=== PATIENT | male | born 1950 | race Caucasian/White ===

== ENCOUNTER 2016-12-07 20:10 | Inpatient (IN) | payer MEDICARE ==
[2016-12-07] MEDS ORDERED: NS 0.9% 1000 ML* 1,000 ML IV ONE (20:12)
[2016-12-07 20:50] LABS: Hematocrit 47 % (42-52); Hemoglobin 14.9 g/dl (14.0-18.0); Mean Corpuscular HGB Conc 32 g/dl (31-36); Mean Corpuscular Hemoglobin 28 pg (27-31); Mean Corpuscular Volume 89 fL (80-94); Mean Platelet Volume 8 um3 (7.4-10.4); Red Blood Count 5.28 10^6/ul (4.0-5.4); Red Cell Distribution Width 17 % (10.5-15); White Blood Count 22.5 10^3/ul (3.5-10.8)
--- NOTE | 2016-12-07 20:50 | HP ---
H&P (Free Text) History and Physical: PCP: none Date/Time of Evaluation: 12/07/20162034 CC: SOB HPI: Mr Doan is a 66YO male who is a very poor, tangential historian present via EMS with severe respiratory distress. He lives in an apartment in his daughter's home. She relates that he has always been a "hermit" refusing to go to a doctor at her encouragement. She states he rarely leaves his apartment. Today she was at work when she received an incoherent text from him which is unusual as he never texts. She went home to find him on the floor unable to get up and called EMS who related he was reasonably stable upon their arrival, but developed progressive SOB during transport. Mr Doan is AA&O to PPTS, but is very difficult to get information from as his answers vary minute to minute. At one point he relates his breathing was worse all week while another moment states he was at his baseline this AM. In one breath he will admit to having had some chest pain and the next deny chest pain. At another time he states he' s lost ~100# in the past 6 months, then will state he has never weighed more than 135#. His daughter states that he was convinced he had a swallowing problem 20-30 years ago, went to a doctor who told him his swallowing was fine, and so he never went to a doctor again. She states he has never been a 'big eater'. ED evaluation revealed a L pneumothorax for which a needle catheter was placed and Teja Rodrigues MD surgery is present placing a chest tube. 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 Father was estranged. ROS: as above, otherwise reviewed and all were negative Constitutional: NAD currently, normally developed, severely cachexic white male vitals: Vital Signs Temp Pulse 106 12/07/16 21:00 Resp 26 12/07/16 21:00 BP 115/64 12/07/16 21:00 Pulse Ox 87 12/07/16 21:00 Intake & Output 12/06/16 12/07/16 12/07/16 23:59 11:59 23:59 Intake Total 1000 Balance 1000 Intake: IV Fluids 1000 HEENM: atraumatic; sclera/conjunctiva: non-icteric/dull; blephara: sunken; hearing: clinically intact; oropharynx: clear, mucosa tacky Neck: soft tissue: no nuchal rigidity; thyroid: normal Pulmonary: diminished L, poor to fair aeration, no accessory muscle use, pleural catheter L chest CV: TR/TR, normal S1S2, no carotid bruit, no jugular venous distention, 2+ B DP/ PT, no edema Abdominal: soft, non-distended, non-tender, no rebound/guarding/rigidity, normoactive bowel sounds, no hepatosplenomegaly or masses, no costovertebral angle tenderness Musculoskeletal: general: no overt deformities, advanced muscle wasting; gait: too ill to ambulate currently Integumental: normal appearance, ichthyosis B forefeet, no open wounds to exposed skin Psychiatric orientation: AA&O to PPTS & current events affect: calm mood: cooperative eye contact: fair content: unreliable; he appears to understand the questions but answers vary moment to moment regarding his health; however questions regarding orientation, goals of treatment, & care he is willing to accept are consistent; his daughter confirms that he would not want heroic measures such as CPR, cardioversion, or intubation responses: timely insight: fair to poor Testing: Lab Results 12/07/16 12/07/16 12/07/16 Range/Units 20:20 20:20 20:20 WBC 22.5 H (3.5-10.8) 10^3/ul RBC 5.28 (4.0-5.4) 10^6/ul Hgb 14.9 (14.0-18.0) g/dl Hct 47 (42-52) % MCV 89 (80-94) fL MCH 28 (27-31) pg MCHC 32 (31-36) g/dl RDW 17 H (10.5-15) % Plt Count 277 (150-450) 10^3/ul MPV 8 (7.4-10.4) um3 Neut % (Auto) 90.9 H (38-83) % Lymph % (Auto) 2.8 L (25-47) % [place] % (Auto) 6.0 (1-9) % Eos % (Auto) 0 (0-6) % Baso % (Auto) 0.3 (0-2) % Absolute Neuts (auto) 20.5 H (1.5-7.7) 10^3/ul Absolute Lymphs (auto) 0.6 L (1.0-4.8) 10^3/ul Absolute Monos (auto) 1.3 H (0-0.8) 10^3/ul Absolute Eos (auto) 0 (0-0.6) 10^3/ul Absolute Basos (auto) 0.1 (0-0.2) 10^3/ul Absolute Nucleated RBC 0.01 10^3/ul Nucleated RBC % 0 INR (Anticoag Therapy) 1.26 H (0.89-1.11) APTT 29.2 (26.0-36.3) seconds Sodium 144 (133-145) mmol/L Potassium 4.5 (3.5-5.0) mmol/L Chloride 101 (101-111) mmol/L Carbon Dioxide 28 (22-32) mmol/L Anion Gap 15 H (2-11) mmol/L BUN 88 H (6-24) mg/dL Creatinine 4.06 H (0.67-1.17) mg/dL Est GFR ( Amer) 19.0 (>60) Est GFR (Non-Af Amer) 14.8 (>60) BUN/Creatinine Ratio 21.7 H (8-20) Glucose 147 H (70-100) mg/dL Lactic Acid (0.5-2.0) mmol/L Calcium 9.6 (8.6-10.3) mg/dL Total Bilirubin 0.70 (0.2-1.0) mg/dL AST 44 H (13-39) U/L ALT 34 (7-52) U/L Alkaline Phosphatase 63 (34-104) U/L Total Creatine Kinase Pending CK-MB (CK-2) Pending Troponin I 0.06 H* (<0.04) ng/mL Total Protein 7.1 (6.4-8.9) g/dL Albumin 3.2 (3.2-5.2) g/dL Globulin 3.9 (2-4) g/dL Albumin/Globulin Ratio 0.8 L (1-3) Prealbumin Pending 12/07/16 Range/Units 20:20 WBC (3.5-10.8) 10^3/ul RBC (4.0-5.4) 10^6/ul Hgb (14.0-18.0) g/dl Hct (42-52) % MCV (80-94) fL MCH (27-31) pg MCHC (31-36) g/dl RDW (10.5-15) % Plt Count (150-450) 10^3/ul MPV (7.4-10.4) um3 Neut % (Auto) (38-83) % Lymph % (Auto) (25-47) % [place] % (Auto) (1-9) % Eos % (Auto) (0-6) % Baso % (Auto) (0-2) % Absolute Neuts (auto) (1.5-7.7) 10^3/ul Absolute Lymphs (auto) (1.0-4.8) 10^3/ul Absolute Monos (auto) (0-0.8) 10^3/ul Absolute Eos (auto) (0-0.6) 10^3/ul Absolute Basos (auto) (0-0.2) 10^3/ul Absolute Nucleated RBC 10^3/ul Nucleated RBC % INR (Anticoag Therapy) (0.89-1.11) APTT (26.0-36.3) seconds Sodium (133-145) mmol/L Potassium (3.5-5.0) mmol/L Chloride (101-111) mmol/L Carbon Dioxide (22-32) mmol/L Anion Gap (2-11) mmol/L BUN (6-24) mg/dL Creatinine (0.67-1.17) mg/dL Est GFR ( Amer) (>60) Est GFR (Non-Af Amer) (>60) BUN/Creatinine Ratio (8-20) Glucose (70-100) mg/dL Lactic Acid 3.1 H* (0.5-2.0) mmol/L Calcium (8.6-10.3) mg/dL Total Bilirubin (0.2-1.0) mg/dL AST (13-39) U/L ALT (7-52) U/L Alkaline Phosphatase (34-104) U/L Total Creatine Kinase CK-MB (CK-2) Troponin I (<0.04) ng/mL Total Protein (6.4-8.9) g/dL Albumin (3.2-5.2) g/dL Globulin (2-4) g/dL Albumin/Globulin Ratio (1-3) Prealbumin ECG, personally reviewed: sinus arrhythmia rate 130, no ischemia CXR, personally reviewed: IMPRESSION: Small bore pleural catheter in place at the LEFT apex. Mild interval decrease in volume of the large LEFT pneumothorax with the visceral pleural now displaced only 5.4 cm from the parietal pleura compared with 6.8 cm previously. Negative for mediastinal shift. Advanced stigmata of chronic obstructive pulmonary disease and interstitial fibrosis. CT C-spine WO: IMPRESSION: No acute fracture or listhesis of cervical spine. Mild cervical spondyloarthropathy. Osteopenia. CT chest/abd/pel WO, personally reviewed: Small left pneumothorax. Left sided chest tube tip in region of the left thoracic apex. No mediastinal shift. Moderate to severe upper lobe predominant emphysema. Nonspecific bilateral lower lobe consolidations. Small left pleural effusion. Coronary artery and aortic atherosclerotic changes. No acute abnormality [of the abdomen or pelvis] . Nonspecific small 15mm lucent focus in the posterior medial left iliac wing. Impression: 66M severely cachectic, very poor historian presenting via EMS found on floor by daughter identified as having a large spontaneous L pneumothorax in ED DIAGNOSIS & PLAN Primary spontaneous L pneumothorax : s/p needle cath to L chest via ED MD : Teja Rodrigues MD surgery present to place chest tube w/ Heimlich valve; will follow & manage : supportive care : pain control sepsis (leukocytosis, tachycardia, positive procalcitonin/lactate), suspect RLL pneumonia : piperacillin/tazobactam empirically : blood, sputum, & urine CXs : trend lactic acid severe protein malnutrition, weight loss, & cachexia : nutrition consult : check pre-albumin : ST for swallowing evaluation : PT/OT evaluations : check CT chest/abd/pel WO to eval for occult malignancy renal failure : no comparison BUN/cre values; suspect acute vs acute on chronic : IVFs & trend : consider nephrology consult, pending response elevated troponin : suspect demand ischemia 2nd above : telemetry : trend COPD, not in exacerbation : albuterol nebs PRN : mometasone/formoterol : tiotropium : incentive spirometry : smoking cessation recommended, low motivation Admission Rational: inpatient for critically ill patient requiring ICU, poor prognosis, inappropriate for outpatient setting DVTp: SCDs & heparin SQ Code Status: DNR/I requested by patient, confirmed by daughter; MOLST filled out HCP: daughter Kimmie Total critical care time: 120min, >50% spent in direct [id number] evaluation of patient, speaking w/ family, explaining TX options, goals of therapy, prognosis, & status
[2016-12-07 20:51] LABS: Add Diff/Slide Review? Slide Review Added; Comments Flag Yes
[2016-12-07 20:56] LABS: Troponin I 0.06 ng/mL (<0.04)
[2016-12-07 21:03] LABS: Albumin 3.2 g/dL (3.2-5.2); BUN/Creatinine Ratio 21.7 (8-20); Calcium 9.6 mg/dL (8.6-10.3); EGFR Non-African American 14.8 (>60); Globulin 3.9 g/dL (2-4); Potassium 4.5 mmol/L (3.5-5.0); Total Bilirubin 0.7 mg/dL (0.2-1.0); Total Protein 7.1 g/dL (6.4-8.9)
--- NOTE | 2016-12-07 21:10 | RAD ---
Indication: Sepsis. Question pneumonia. Comparison: No relevant prior exams available on the [facility] PACS for comparison. Technique: Upright AP Report: Large LEFT pneumothorax with the lateral visceral pleural displaced up to 6.8 cm medial from the parietal pleura. Negative for mediastinal shift. Generalized elevated lung volumes and both diffuse severe prominence of the interstitial markings and patchy rarefaction of the mid to upper lung zone interstitial markings. No focal pulmonary lesion evident. Negative for cardiomegaly. Unremarkable central pulmonary vasculature and mediastinal contours. IMPRESSION: Large LEFT pneumothorax without mediastinal shift. Advanced stigmata of chronic obstructive pulmonary disease and interstitial fibrosis.
--- NOTE | 2016-12-07 21:20 | RAD ---
Indication: Large LEFT pneumothorax post needle decompression. Comparison: 1911 hours exam of the same date. Technique: Upright AP 2049 Report: Small bore pleural catheter in place at the LEFT apex. Mild interval decrease in volume of the large LEFT pneumothorax with the visceral pleural now displaced only 5.4 cm from the parietal pleura compared with 6.8 cm previously. Negative for mediastinal shift. Generalized elevated lung volumes and both diffuse severe prominence of the interstitial markings and patchy rarefaction of the mid to upper lung zone interstitial markings. No focal pulmonary lesion evident. Negative for cardiomegaly. Unremarkable central pulmonary vasculature and mediastinal contours. IMPRESSION: Small bore pleural catheter in place at the LEFT apex. Mild interval decrease in volume of the large LEFT pneumothorax with the visceral pleural now displaced only 5.4 cm from the parietal pleura compared with 6.8 cm previously. Negative for mediastinal shift. Advanced stigmata of chronic obstructive pulmonary disease and interstitial fibrosis.
[2016-12-07] MEDS ORDERED: Ondansetron INJ* 2 MG/ML VIAL IV PRN (22:20)
[2016-12-07] MEDS ORDERED: Albuterol 2.5 MG/3 ML NEB.SOL* (0.083%) INH PRN (22:20)
[2016-12-07] MEDS ORDERED: CMCS: Melatonin (NF) 3 MG TAB PO PRN (22:20)
[2016-12-07] MEDS ORDERED: Nicotine Inhaler* 10 MG AMP INH PRN (22:20)
[2016-12-07] MEDS: NS 0.9% 1000 ML* 1,000 ML IV SCH ×2 (23:11→23:12)
[2016-12-08] MEDS: Albuterol 2.5 MG/3 ML NEB.SOL* (0.083%) INH SCH ×4 (01:07→19:34)
[2016-12-08] MEDS: NS 0.9% 1000 ML* 1,000 ML IV SCH ×3 (03:44→19:05)
[2016-12-08 04:03] LABS: Urine Bacteria 1+ (Absent); Urine Bilirubin Negative (Negative); Urine Glucose Negative (Negative); Urine Nitrite Negative (Negative)
[2016-12-08] MEDS: Omeprazole CAP* 20 MG PO SCH ×2 (06:00→09:37)
[2016-12-08 06:21] LABS: Hematocrit 38 % (42-52); Hemoglobin 11.9 g/dl (14.0-18.0); Mean Corpuscular HGB Conc 32 g/dl (31-36); Mean Corpuscular Hemoglobin 28 pg (27-31); Mean Corpuscular Volume 89 fL (80-94); Mean Platelet Volume 8 um3 (7.4-10.4); Red Cell Distribution Width 17 % (10.5-15); White Blood Count 16.1 10^3/ul (3.5-10.8)
[2016-12-08 06:26] LABS: Calcium 8.1 mg/dL (8.6-10.3); EGFR African American 26.6 (>60); EGFR Non-African American 20.7 (>60); Potassium 3.8 mmol/L (3.5-5.0)
[2016-12-08 06:33] LABS: Troponin I 0.05 ng/mL (<0.04)
[2016-12-08] MEDS: Heparin VIAL(*) 5000 UNITS/ML VIAL (FIVE THOUSAND) SUBCUT SCH ×3 (06:43→21:49)
[2016-12-08] MEDS: Tiotropium CAP.INH* CAP.INH/18 MCG INH SCH (08:30)
[2016-12-08] MEDS: Mometasone/Formoter 200/5 MDI INH SCH ×2 (08:31→19:37)
[2016-12-08] MEDS ORDERED: Mouth Piece, Nicotine* 1 EACH CARTRIDGE INH ONE (09:00)
[2016-12-08] MEDS: Docusate CAP* 100 MG PO SCH ×2 (09:37→21:38)
[2016-12-08] MEDS: Azithromycin IV(*) 500 MG in NS 0.9% 250 ML* 250 ML IVPB SCH (09:37)
[2016-12-08] MEDS: Aspirin EC Low Dose* 81 MG TAB.EC PO SCH (09:37)
[2016-12-08] MEDS: Spiriva Inhaler DEVICE* 1 EACH DEVICE INH SCH (09:48)
--- NOTE | 2016-12-08 10:01 | RAD ---
INDICATION: Severe cachexia. Suspect occult malignancy. Presented to the ED with LEFT pneumothorax. COMPARISON: December 07, 2016 chest radiograph. TECHNIQUE: Multidetector CT images were obtained from the lung apices to the ischial tuberosities without contrast. Assessment of the viscera limited without contrast. CHEST REPORT: Persistent approximate 30% LEFT pneumothorax. Heimlich valve type LEFT apical chest tube in place. Small dependent LEFT pleural effusion. Severe emphysema and moderate interstitial fibrosis. Alveolar consolidation at the bilateral lower lobes. On the LEFT this may in part represent atelectasis given volume loss from the pneumothorax. Reference image 38; 0.7 cm subpleural smooth margin noncalcified pulmonary nodule at the anterior segment of the RIGHT upper lobe. Negative for mediastinal shift. Negative for cardiomegaly or pericardial effusion. No thoracic lymphadenopathy with absence of IV contrast and cachectic state limiting assessment. Normal diameter thoracic aorta with calcific plaque. No thoracic fractures or suspicious focal osseous lesions evident. CHEST IMPRESSION: 1. Persistent approximate 30% LEFT pneumothorax. Heimlich valve type LEFT apical chest tube in place. Small dependent LEFT pleural effusion. Severe emphysema and moderate interstitial fibrosis. 2. Severe emphysema and moderate interstitial fibrosis. Alveolar consolidation at the bilateral lower lobes. On the LEFT this may in part represent atelectasis given volume loss from the pneumothorax. 3. 0.7 cm smooth margined subpleural pulmonary nodule anterior segment RIGHT upper lobe. Consider reassessment with noncontrast CT in 3 months time. ABDOMEN PELVIS REPORT: Absence of IV and oral contrast and cachectic state limits assessment. No gross abnormality of the liver, gallbladder, pancreas, spleen. Assessment of the alimentary tract is particularly limited due to factors described. Significant rectal distention with large volume of formed stool. No ascites, free air, or hernias evident. Negative for adrenal lesions. Unremarkable kidneys. No conspicuous urolithiasis or hydronephrosis. No gross abnormality of the partially distended urinary bladder. Coarse calcifications at the prostate. Grossly symmetric seminal vesicles. No lymphadenopathy evident with assessment limited due to factors noted above. Calcific plaque without aneurysm of the abdominal aorta or iliac arteries. Partially decompressed IVC indicating low volume state. 1.5 cm lucent lesion at the LEFT iliac wing medially is low suspicion given narrow zone of transition with partial thin sclerotic margin . This likely represents a degenerative cyst related to sacroiliac joint arthropathy. Negative for suspicious osseous lesions. Polyarticular degenerative arthropathy. ABDOMEN PELVIS IMPRESSION: Absence of IV and oral contrast and cachectic state limits assessment. Cold malignancy or acute abdominal pelvic pathologic process evident.
--- NOTE | 2016-12-08 10:06 | RAD ---
Indication: Post LEFT apical chest tube placement for pneumothorax. Comparison: Chest radiographs and CT of the same date. Technique: Upright AP 2235 hours Report: LEFT apical chest tube in place. Gross near complete resolution of previous large LEFT pneumothorax. Negative for mediastinal shift. Elevated lung volumes and both diffuse mild prominence of the interstitial markings and patchy rarefaction of the mid to upper lung zone interstitial markings. Patchy alveolar consolidation throughout the LEFT lung and at the RIGHT mid to lower lung zone corresponding with alveolar consolidation and mucous plugging on CT consistent with inflammatory infiltrates. The heart, pulmonary vasculature, and mediastinal contours are unremarkable. IMPRESSION: Near complete radiographic resolution of previous large LEFT pneumothorax. Bilateral inflammatory infiltrate superimposed on advanced chronic obstructive pulmonary disease and emphysema.
--- NOTE | 2016-12-08 10:37 | RAD ---
Indication: Fall. Cachectic. Failure to thrive. Comparison: No relevant prior exams available on the [facility] PACS for comparison. Technique: Noncontrast CT vertex of skull through foramen magnum. Report: The cerebral sulci mildly prominent reflecting atrophy. Unremarkable ventricles and basal cisterns. Decreased density in the periventricular and subcortical white matter while non-specific is most likely due to chronic microangiopathy. Elizabeth matter white matter differentiation is preserved without evidence for edema. No intra or extra axial hemorrhage, mass, or fluid collection detected. Unremarkable visualized orbital contents. Unremarkable calvarium and skull base. Unremarkable scalp. The visualized paranasal sinuses and mastoid air spaces are clear. IMPRESSION: Involutional change and stigmata of chronic small vessel ischemic disease. No acute intracranial process evident.
--- NOTE | 2016-12-08 10:44 | RAD ---
INDICATION: Fall. Failure to thrive. Presented with LEFT pneumothorax. COMPARISON: No relevant prior exams available on the [facility] PACS for comparison. TECHNIQUE: Multidetector CT images foramen magnum to lung apices without contrast. Multiplanar reformation. REPORT: LEFT apical chest tube in place. Small residual pneumothorax visualized. Markedly advanced emphysema. Normal vertebral alignment accounting for exam positioning without spondylolisthesis or subluxation at any level. Negative for cervical vertebral body or posterior element fracture. Negative for paravertebral hematoma. Multilevel degenerative spondylosis and facet joint osteoarthritis. Disc space narrowing is moderate at C5-C6 and severe at C6-C7. At both levels mild dorsal disc osteophyte complexes result in only minimal impression on the ventral margin of the thecal sac. At C6-C7 on the LEFT uncinate process spurring and facet joint osteoarthritis results in mild LEFT foraminal stenosis. IMPRESSION: Negative for traumatic injury of the cervical spine.
--- NOTE | 2016-12-08 11:02 | PN ---
Progress Note - Progress Note Date of Service: 12/08/16 SOAP: Subjective: Pt seen and chart reviewed Objective: af hypotensive O2 sat high 90s on 4L nc Chest tube: no output, positve airleak at rest CT chest reviewed. persistent ptx smaller, but study taken 1hr after tube placement mucous plugging Assessment: Spontaneous L ptx 2ary to emphysema, though malignancy must be considered. Plan: Pulm consult for bronch Continue ivone tube for now CXR in am
--- NOTE | 2016-12-08 11:42 | ECHO ---
Patient: JUAN COPELAND [facility] Rec#: [id number] : 1950 Date: 12/08/2016 Age: 66y Height: 165.1 cm / 65.0 in Weight: 43.09 kg / 95.0 lbs Sex: M BSA: 1.44 Room#: ICU 2 Admit Date#: 12/07/2016 Type: Inpatient Referring: Иван Olmstead MD Reading: Tomás Vallejo MD [employer]ting Machine Operator: Alta De La GarzaRDCS,RDMS Transthoracic Echocardiogram Indication: Respiratory Abnormality BP: 87/56 HR: 83 Rhythm: NSR Findings History: Left pneumothorax, chest tube. Smoker, ETOH Technical Comments: The study is technically limited due to poor acoustic windows. Completed 929 Left Ventricle: The left ventricular chamber size is normal. There is no left ventricular hypertrophy. The estimated ejection fraction is 50-55%. Abnormal left ventricular diastolic function is observed. The left ventricular diastolic filling pattern is consistent with pseudonormalization. Left Atrium: The left atrium is mildly dilated. Right Ventricle: The right ventricle wall thickness is moderately increased. The right ventricular global systolic function is moderately reduced. Right Atrium: The right atrium is not well visualized. Aortic Valve: There is no evidence of aortic valve thickening. Systolic excursion of the aortic valve is normal. There is a trace of aortic regurgitation. There is no evidence of aortic stenosis. Mitral Valve: The mitral valve leaflets are mildly thickened. There is no evidence of mitral regurgitation. There is no evidence of mitral stenosis. Tricuspid Valve: The tricuspid valve leaflets are normal. There is trace tricuspid regurgitation. Pulmonic Valve: The pulmonic valve appears normal. There is a trace pulmonic regurgitation. Pericardium: There is no significant pericardial effusion. A left pleural effusion is present.with echodensities c/w fibrinous strands and possibly atelectic lung parenchyma. Aorta: The ascending aorta is not well visualized. The aortic arch is not well visualized. There is no dilation of the aortic root. There is plaque visualized in the descending aorta. Pulmonary Artery: The main pulmonary artery appears normal. Venous: The inferior vena cava appears normal in size. There is a greater than 50% respiratory change in the inferior vena cava dimension. Summary: There was not any prior study for comparison. Conclusions The study is technically limited due to poor acoustic windows. Completed 09 The estimated ejection fraction is 50-55%. Abnormal left ventricular diastolic function is observed. The left atrium is mildly dilated. The right ventricle wall thickness is moderately increased. The right ventricular global systolic function is moderately reduced. There is a trace of aortic regurgitation. There is trace tricuspid regurgitation. There is plaque visualized in the descending aorta. A left pleural effusion is present.with echodensities c/w fibrinous strands and possibly atelectic lung parenchyma. Measurements Name Value Normal Range RVIDd (AP) 2D 1.5 cm (0.9 - 2.6) IVSd (2D) 0.6 cm (0.6 - 1) LVPWd (2D) 0.7 cm (0.6 - 1) LVIDd (2D) 3.9 cm (3.6 - 5.4) LVIDs (2D) 2.8 cm - LV FS (2D) 28 % (25 - 45) Aortic Annulus 2 cm (1.4 - 2.6) Ao root diameter (2D) 3.3 cm (2.1 - 3.5) LA dimension (AP) 2D 1.5 cm (2.3 - 3.8) LAd ISD 4CH 4.5 cm (2.9 - 5.3) LA ISD 4CH W 3 cm (2.5 - 4.5) Name Value Normal Range MV E-wave Vmax 0.7 m/sec - MV deceleration time 94 msec - MV A-wave Vmax 0.5 m/sec - MV E:A ratio 1.4 ratio - LV septal e' Vmax 0.05 m/sec - LV lateral e' Vmax 0.04 m/sec - LV E:e' septal ratio 15 ratio - LV E:e' lateral ratio 20 ratio - Name Value Normal Range AV Vmax 0.9 m/sec - AV VTI 14.1 cm - AV peak gradient 3.2 mmHg - AV mean gradient 1.7 mmHg - LVOT Vmax 0.8 m/sec - LVOT VTI 13.8 cm - LVOT peak gradient 2.4 mmHg - LVOT mean gradient 1.1 mmHg - Name Value Normal Range TR Vmax 2.4 m/sec - TR peak gradient 23 mmHg - RAP 3 mmHg - RVSP 26 mmHg - IVC diameter 1.5 cm - Name Value Normal Range PV Vmax 0.7 m/sec - PV peak gradient 2 mmHg -
[2016-12-08] MEDS: ZOSYN 3.375 GM Q12H per EXTENDED INFUSION IVPB SCH ×4 (11:44→22:16)
--- NOTE | 2016-12-08 14:16 | PN ---
Subjective Date of Service: 12/08/16 Interval History: HOSPITALIST PROGRESS NOTE Patient seen and examined at bedside. He feels better today. States he's breathing is much improved, denies chest pain even with deep inspiration. Did well during nursing swallow evaluation and is tolerating diet. Family History: Unchanged from Admission Social History: Unchanged from Admission Past Medical History: Unchanged from Admission Objective Active Medications: Acetaminophen (Tylenol Tab*) 650 mg PO Q6H PRN PRN Reason: FEVER/PAIN Albuterol (Ventolin 2.5 Mg/3 Ml Neb.Agnella*) 2.5 mg INH Q2H PRN PRN Reason: SOB/WHEEZING Albuterol (Ventolin 2.5 Mg/3 Ml Neb.Angella*) 2.5 mg INH [id number] AWAKE [facility] Last Admin: 12/08/16 13:44 Dose: 2.5 mg Aspirin (Aspirin Ec Low Dose*) 81 mg PO DAILY [facility] Last Admin: 12/08/16 09:37 Dose: 81 mg Device (Tiotropium Inhaler Device*) 1 each INH 0900 [facility] Last Admin: 12/08/16 09:48 Dose: 1 each Docusate Sodium (Colace Cap*) 200 mg PO BID [facility] Last Admin: 12/08/16 09:37 Dose: 200 mg Heparin Sodium (Porcine) (Heparin Vial(*)) 5,000 units SUBCUT Q8HR [facility] Last Admin: 12/08/16 06:43 Dose: Not Given Sodium Chloride (Ns 0.9% 1000 Ml*) 1,000 mls @ 125 mls/hr IV PER RATE [facility] Last Admin: 12/08/16 11:23 Dose: 125 mls/hr Sodium Chloride (Ns 0.9% 1000 Ml*) 1,000 mls @ 0 mls/hr IV WIDE OPEN [facility] PRN Reason: Wide Open Stop: 12/08/16 22:31 Last Admin: 12/07/16 23:12 Dose: 1,000 mls/hr Piperacillin Sod/Tazobactam (Sod 3.375 gm/ Sodium Chloride) 100 mls @ 25 mls/ hr IVPB Q12H [facility] Last Admin: 12/08/16 11:44 Dose: 25 mls/hr Azithromycin 500 mg/ Sodium (Chloride) 250 mls @ 250 mls/hr IVPB Q24H [facility] Last Admin: 12/08/16 09:37 Dose: 250 mls/hr Melatonin (Melatonin (Nf)) 3 mg PO BEDTIME PRN; Protocol PRN Reason: Sleep Mometasone Furoate/Formoterol Fumar (Dulera 200/5 Mdi*) 2 puff INH BID [facility] Last Admin: 12/08/16 08:31 Dose: 2 puff Nicotine (Nicotine Inhaler*) 10 mg INH Q2H PRN PRN Reason: CRAVING Omeprazole (Prilosec Cap*) 20 mg PO DAILY@0600 [facility] Last Admin: 12/08/16 09:37 Dose: 20 mg Tiotropium [place] (Spiriva Cap.Inh*) 1 cap INH DAILY [facility] Last Admin: 12/08/16 08:30 Dose: 1 cap Tramadol HCl (Ultram*) 50 mg PO Q12H PRN PRN Reason: PAIN Vital Signs 12/08/16 12/08/16 12/08/16 05:30 05:45 06:00 Temperature Pulse Rate 76 78 69 Respiratory 14 14 13 Rate Blood Pressure 83/45 87/56 (mmHg) O2 Sat by Pulse 95 97 97 Oximetry 12/08/16 12/08/16 12/08/16 08:00 08:30 11:53 Temperature 97.2 F 98.2 F Pulse Rate 84 Respiratory Rate Blood Pressure (mmHg) O2 Sat by Pulse 96 Oximetry Oxygen Devices in Use Now: Nasal Cannula Appearance: Cachectic male, appears much older than stated age, lying in bed in [facility]. Eyes: No Scleral Icterus Ears/Nose/Mouth/Throat: Mucous Membranes Moist Neck: Trachea Midline Respiratory: Symmetrical Chest Expansion and Respiratory Effort, - - BS+ bilaterally decreased with no added sounds Cardiovascular: RRR - Normal S1 and S2 Abdominal: NL Sounds; No Tenderness; No Distention Extremities: No Edema Neurological: Alert and Oriented x 3 Lines/Tubes/Other Access: Clean, Dry and Intact Peripheral IV Nutrition: Taking PO's Result Diagrams: 12/08/16 05:58 12/08/16 05:58 Assess/Plan/Problems-Billing Assessment: Mr. Doan is a 66yo M with limited contact with the medical system, who presented to ED with dyspnea, found to have left pneumothorax and sepsis secondary to pneumonia. - Patient Problems (1) Severe sepsis Comment: - Patient met sepsis criteria on admission with leukocytosis and tachycardia, also found to have CLARA. - Source is pneumonia. (2) Pneumonia Comment: - CxR and CT chest reviewed. - Check Legionella and pneumococcal Ag. - Possible component of aspiration due to his significant weakness. - Continue Zosyn and add Azithromycin. - Follow cultures. (3) Pneumothorax Comment: - Surgery input appreciated - continue chest tube for now and repeat CxR in AM. (4) Severe protein-calorie malnutrition Comment: - Patient's BMI is only 13. - Prealbumin is 3. - He states he's appetite is returning now. - Dietary input appreciated - continue supplements as tolerated. - Concern for possible malignancy underlying his significant weight loss - Pulmonary consult. (5) CLARA (acute kidney injury) Comment: - Improving. - Continue IVF. (6) Demand ischemia Comment: - Secondary to severe sepsis. - Continue Aspirin. (7) COPD (chronic obstructive pulmonary disease) Comment: - Stable. - Continue bronchodilators and steroids. (8) Depression Comment: - Suspect depression playing a role on his clinical condition. - Will consult Psych when patient more stable. (9) DVT prophylaxis Comment: - SQ heparin. (10) Full code status Status and Disposition: Inpatient.
[2016-12-08] MEDS ORDERED: Sodium Phosphate ADULT ENEMA* 118 ml bottle PR PRN (14:28)
[2016-12-08] MEDS: Polyethylene Glycol 3350* 17 GM PACKET PO SCH (21:39)
[2016-12-08] MEDS ORDERED: NS 0.9% 1000 ML* 2,000 ML IV ONE (21:41)
[2016-12-08] MEDS ORDERED: NS 0.9% 1000 ML* 1,000 ML IV ONE ×2 (21:42→23:35)
[2016-12-08] MEDS: Acetaminophen TAB* 325 MG PO PRN (23:17)
[2016-12-08] MEDS ORDERED: NS 0.9% 1000 ML* 1,000 ML IV SCH ×2 (23:35→23:37)
[2016-12-09] MEDS ORDERED: NS 0.9% 1000 ML* 1,000 ML IV ONE (01:25)
[2016-12-09] MEDS: Albuterol 2.5 MG/3 ML NEB.SOL* (0.083%) INH SCH ×4 (01:29→20:03)
[2016-12-09 02:47] LABS: Hematocrit 34 % (42-52); Hemoglobin 10.7 g/dl (14.0-18.0); Mean Corpuscular HGB Conc 31 g/dl (31-36); Mean Corpuscular Hemoglobin 28 pg (27-31); Mean Corpuscular Volume 89 fL (80-94); Mean Platelet Volume 8 um3 (7.4-10.4); Red Blood Count 3.83 10^6/ul (4.0-5.4); Red Cell Distribution Width 17 % (10.5-15); White Blood Count 16.1 10^3/ul (3.5-10.8)
[2016-12-09 02:54] LABS: Albumin 2.2 g/dL (3.2-5.2); BUN/Creatinine Ratio 33.3 (8-20); Calcium 7.3 mg/dL (8.6-10.3); EGFR African American 45.2 (>60); EGFR Non-African American 35.1 (>60); Globulin 2.4 g/dL (2-4); Potassium 3.2 mmol/L (3.5-5.0); Total Bilirubin 0.6 mg/dL (0.2-1.0); Total Protein 4.6 g/dL (6.4-8.9)
[2016-12-09 03:05] LABS: Rapid HIV INT CONT QC Line Present; Rapid HIV Kit Lot# HO17003
[2016-12-09 03:06] LABS: Manual Entry Verification CAR0052
[2016-12-09] MEDS ORDERED: Norepinephrine 16MCG/ML IVPRE* 4,000 MCG/250 ML BAG IV ONE (03:07)
--- NOTE | 2016-12-09 03:07 | PN ---
Progress Note - Progress Note Date of Service: 12/09/16 Note: Paged for persistent hypotension despite 3L NS. Patient mentating and alert. States he has some tenderness at the chest tube site. Denies CP or SOB. Discussed repeating labs. Discussed getting HIV testing, he states he does not think he is at risk for this but willing to get tested. Also ordered quantiferon assay. Repeat CXR shows improvement in pneumo but more prominent interstitial markings. Will start levophed and continue NS IVFs. Monitor respiratory status closely. Also consider PCP Pneumonia.
[2016-12-09] MEDS ORDERED: Norepinephrine 16MCG/ML IVPRE* 4,000 MCG/250 ML BAG IV SCH (04:00)
[2016-12-09 04:35] LABS: Magnesium 1.8 mg/dL (1.9-2.7)
[2016-12-09] MEDS: Heparin VIAL(*) 5000 UNITS/ML VIAL (FIVE THOUSAND) SUBCUT SCH ×3 (05:59→21:35)
[2016-12-09] MEDS: Omeprazole CAP* 20 MG PO SCH (05:59)
--- NOTE | 2016-12-09 06:24 | PRO ---
SURGICAL CONSULTATION AND PROCEDURE NOTE: DATE OF PROCEDURE: 12/07/16 DATE OF : 48 PROCEDURE PERFORMED BY: Deven Rodrigues MD I was contacted by the emergency room regarding Mr. Jd Doan, a 66-year-old gentleman, who does not routinely see a medical doctor, who presented to the emergency room in severe respiratory distress and was noted to have left-sided pneumothorax. He underwent needle decompression due to hypotension and concern for tension pneumothorax. There was a gush of air according to the ER physician. Chest x-ray did reveal large pneumothorax and my service was contacted. According to documentation, the patient's family member went and checked up on him and noted that he was almost incoherent and then called the ambulance. He was developing progressive shortness of breath during the transfer. Additional history revealed that he has lost about 100 pounds in the last year, although it is unclear if the patient ever weighed more than 135 pounds, currently he is 79 pounds. The patient describes that he has inability to eat as it causes of discomfort, liquids are better. PAST MEDICAL HISTORY: Unknown. MEDICATIONS: None. ALLERGIES: No known drug allergies. SOCIAL HISTORY: The patient is a smoker. He quit alcohol use approximately 30 years ago. He lives as almost a shut-in. REVIEW OF SYSTEMS: No fevers or chills. The patient does not see a physician. Significant weight loss as described above. Shortness of breath as described above. PHYSICAL EXAMINATION: The patient was hypotensive, tachycardic, afebrile. He was alert and oriented x2. Answering questions appropriately, decreased breath sounds on the left, but poor inspiratory effort all around. The patient is cachectic, unkempt. Angiocath in the second intercostal space on the left, this was connected to a stop cock when it was off. Chest x-ray reviewed, there were 2 at this time. IMPRESSION: Hypotensive, tachycardic with hypoxia in a patient with evidence of large left-sided pneumothorax despite needle decompression, the patient responding to fluid, but remains cachectic with unknown diagnosis, which likely will include malignancy. I have recommended Heimlich valve tube thoracostomy on the left side. I have outlined the details of the procedure going over the risks, benefits and alternatives, which included, but were not limited to bleeding, infection, need for additional procedures, need for chest tube. The patient understood and signed consent. Described to his family member as well. DESCRIPTION OF PROCEDURE: After this, consent was obtained left upper chest was prepped after removing the angiocatheter, it was then draped. A time-out was performed. Injection of lidocaine along the second intercostal space lateral to the midclavicular line, incision was made and a Heimlich valve tubing was then inserted appropriately. Air was evacuated and connected to a Pleur-evac. This was sutured to skin and covered with sterile dressing. The patient tolerated the procedure well. PLAN: Heimlich valve for now. Plan is for hospitalist service. The patient will need workup including CT scan of the chest and we will follow along. [id number]/[facility] #: [id number] [facility]IS HOSPITALChele
[2016-12-09 06:51] LABS: Add on Test ED Complete
[2016-12-09 07:20] LABS: Comments Flag Yes; Hematocrit 37 % (42-52); Hemoglobin 11.4 g/dl (14.0-18.0); Mean Corpuscular HGB Conc 31 g/dl (31-36); Mean Corpuscular Hemoglobin 28 pg (27-31); Mean Corpuscular Volume 91 fL (80-94); Mean Platelet Volume 8 um3 (7.4-10.4); Red Blood Count 4.06 10^6/ul (4.0-5.4); Red Cell Distribution Width 18 % (10.5-15); White Blood Count 21.9 10^3/ul (3.5-10.8)
[2016-12-09 07:21] LABS: Add Diff/Slide Review? Slide Review Added
[2016-12-09] MEDS: Tiotropium CAP.INH* CAP.INH/18 MCG INH SCH (07:32)
[2016-12-09] MEDS: Mometasone/Formoter 200/5 MDI INH SCH ×2 (07:32→20:04)
[2016-12-09 07:35] LABS: Albumin 2.2 g/dL (3.2-5.2); BUN/Creatinine Ratio 34.9 (8-20); C Reactive Protein 128.7 mg/L (< 5.00); Calcium 7.4 mg/dL (8.6-10.3); EGFR African American 51.3 (>60); EGFR Non-African American 39.9 (>60); Globulin 2.7 g/dL (2-4); Total Bilirubin 0.6 mg/dL (0.2-1.0); Total Protein 4.9 g/dL (6.4-8.9)
[2016-12-09 07:50] LABS: Potassium 3.2 mmol/L (3.5-5.0)
--- NOTE | 2016-12-09 07:56 | RAD ---
HISTORY: Hypotension COMPARISONS: December 07, 2016 VIEWS:1: Single frontal portable view of the chest at 1:47 AM FINDINGS: LINES AND TUBES: A left-sided chest tube is noted. CARDIOMEDIASTINAL SILHOUETTE: The cardiomediastinal silhouette is normal for portable technique. PLEURA: There is a small to moderate left pleural effusion. There is no appreciable pneumothorax. LUNG PARENCHYMA: There is hyperinflation. There is confluent alveolar opacification of the left lower lung field. This is developed from the previous examination. There is patchy alveolar opacification of the right lower lung field. ABDOMEN: The upper abdomen is clear. There is no subphrenic gas. BONES AND SOFT TISSUES: No bone or soft tissue abnormalities are noted. IMPRESSION: 1. LINES AND TUBES ABOVE. 2. COPD. 3. SMALL TO MODERATE LEFT PLEURAL EFFUSION WITH LEFT BASILAR CONSOLIDATION. 4. RIGHT BASILAR ATELECTASIS VERSUS CONSOLIDATION.
[2016-12-09 08:09] LABS: TSH (Thyroid Stimulating Horm) 3.18 mcIU/mL (0.34-5.60)
[2016-12-09] MEDS: Aspirin EC Low Dose* 81 MG TAB.EC PO SCH (08:30)
[2016-12-09] MEDS: Azithromycin IV(*) 500 MG in NS 0.9% 250 ML* 250 ML IVPB SCH (09:07)
[2016-12-09] MEDS: Docusate CAP* 100 MG PO SCH ×2 (10:27→20:05)
[2016-12-09] MEDS: Polyethylene Glycol 3350* 17 GM PACKET PO SCH ×2 (10:28→20:05)
[2016-12-09] MEDS: fentaNYL* 50 MCG/ML 2 ML VIAL (100 MCG VIAL) IV SLOW PU PRN ×2 (10:40→21:54)
[2016-12-09] MEDS ORDERED: Magnesium Sulfate 2 GM IV* 2 GM/50 ML BAG IVPB ONE (11:20)
--- NOTE | 2016-12-09 11:29 | PN ---
Progress Note - Progress Note Date of Service: 12/09/16 Note: CRITICAL CARE MEDICINE Date: 12/09/16 Time: 1000 SUBJECTIVE: Patient seen and examined. placed on levo overnight PHYSICAL EXAM: emaciated Vital Signs: Reviewed. Neurologic: awake, communicating; holds capacity HEENT: pupils equal. wasting. Sclera anicteric. Trachea midline. Cardiovascular: S1 S2 Respiratory: few crakles bl; distant on left. Abdomen: Soft, frail. Extremities: Warm. dep edema LABS: Reviewed. IMAGING: Reviewed. MEDICATIONS: Reviewed. ASSESSMENT: 66 M Severe sepsis sec to cap Strept ag pos - strept pna cap CLARA Malnutrition severe degree PLAN: Neurologic: communicating and holds capacity. prn fent if needed Cardiovascular: Perfusing. placed on levophed. keep ivf today to ensure right heart patency. does not need high bp and can goal for sbp >80. Respiratory: has heimlich valve continued. surgical f/u. still feels sob. will try HFO2 today given sx and see if we can allievate work. poor reserve. underlying severe lung disease and will likely need outpt O2, pulm workup etc if amendable. Just need t see if he can catch up today and then see if able to heal. Agree with not placing large bore ct as his healing potentials are poor. needs time without exacerbating. placed in iso for his workup already, but more underlying emphysema and cachexia, plus strept pna his acute ailments. Gastrointestinal: encourage po. nitration f/u. protein suppl. follow phos. Renal/Metabolic: f/u clara and what component is chronic. Infectious Disease: on zosyn/azithro. f/u cx and workup. Hematology: stable. hsq Endocrine: cortisol ok. no steroid need at present and would rather avoid. Musculoskeletal: oob as able. deconditioned. hold pt today and resume tomorrow. Psych/Social: pt expressed understanding. Supportive and preventative care as ordered. Vaccine: will need prior to dc if amendable SUP: po VTE prophylaxis: heparin Disposition: ICU Code Status: DNR Critical Care Time: 30min Robinson Wren DO
[2016-12-09] MEDS: ZOSYN 3.375 GM Q12H per EXTENDED INFUSION IVPB SCH ×2 (12:35)
[2016-12-09] MEDS: Vitamin THERAPEUTIC TAB PO SCH (12:38)
[2016-12-09 12:39] LABS: Magnesium 1.8 mg/dL (1.9-2.7)
--- NOTE | 2016-12-09 12:52 | PN ---
Progress Note - Progress Note Date of Service: 12/09/16 SOAP: Subjective: Pt seen and chart reviewed. 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 Objective: af hypotensive O2 sat high 90s on 4L nc Chest tube: no output, No airleak at rest. Pt was too weak to cough for leak test today cxr report reviewed Assessment: Spontaneous L ptx 2ary to emphysema, though malignancy must be considered. Plan: Continue chest tube for now; possible removal tomorrow.
[2016-12-09] MEDS ORDERED: Calcium Carbonate CHEW TAB* 500 MG (TUMS) PO PRN (13:00)
[2016-12-09 14:02] LABS: Phosphorus 3.5 mg/dL (2.5-5.0)
[2016-12-09] MEDS: Norepinephrine 16MCG/ML IVPRE* 4,000 MCG/250 ML BAG IV SCH (16:23)
[2016-12-09] MEDS: Spiriva Inhaler DEVICE* 1 EACH DEVICE INH SCH (20:03)
[2016-12-10] MEDS: ZOSYN 3.375 GM Q12H per EXTENDED INFUSION IVPB SCH ×2 (00:05)
[2016-12-10] MEDS: Norepinephrine 16MCG/ML IVPRE* 4,000 MCG/250 ML BAG IV SCH (00:14)
[2016-12-10] MEDS: Albuterol 2.5 MG/3 ML NEB.SOL* (0.083%) INH SCH ×4 (00:59→19:58)
[2016-12-10] MEDS: traMADol TAB* 50 MG PO PRN (03:34)
[2016-12-10 05:19] LABS: Hematocrit 33 % (42-52); Hemoglobin 10.2 g/dl (14.0-18.0); Mean Corpuscular HGB Conc 31 g/dl (31-36); Mean Corpuscular Hemoglobin 28 pg (27-31); Mean Corpuscular Volume 90 fL (80-94); Mean Platelet Volume 8 um3 (7.4-10.4); Red Blood Count 3.71 10^6/ul (4.0-5.4); Red Cell Distribution Width 17 % (10.5-15); White Blood Count 17.3 10^3/ul (3.5-10.8)
[2016-12-10 05:32] LABS: BUN/Creatinine Ratio 33.3 (8-20); Calcium 7.7 mg/dL (8.6-10.3); EGFR African American 71.4 (>60); EGFR Non-African American 55.6 (>60); Magnesium 2.1 mg/dL (1.9-2.7); Phosphorus 1.8 mg/dL (2.5-5.0); Potassium 4.1 mmol/L (3.5-5.0)
[2016-12-10] MEDS: Omeprazole CAP* 20 MG PO SCH (06:14)
[2016-12-10] MEDS: Heparin VIAL(*) 5000 UNITS/ML VIAL (FIVE THOUSAND) SUBCUT SCH ×3 (06:16→21:00)
[2016-12-10] MEDS: Azithromycin IV(*) 500 MG in NS 0.9% 250 ML* 250 ML IVPB SCH (08:17)
--- NOTE | 2016-12-10 08:44 | PN ---
Progress Note - Progress Note Date of Service: 12/10/16 SOAP: Subjective: Pt seen and examined. Objective: af hypotensive trachea midline lungs : poor insp effort Chest tube: no output, No airleak at rest, though pt unable to cough. Assessment: Spontaneous L ptx 2ary to emphysema, treated for CAP Plan: Pneumothorax tube clamped for now. Cxr in am, if no ptx, we will remove. Open stopcock if pt has respiratory distress or L ptx.
[2016-12-10] MEDS: Tiotropium CAP.INH* CAP.INH/18 MCG INH SCH (08:47)
[2016-12-10] MEDS: Mometasone/Formoter 200/5 MDI INH SCH ×2 (08:48→20:03)
[2016-12-10] MEDS: Aspirin EC Low Dose* 81 MG TAB.EC PO SCH (08:48)
[2016-12-10] MEDS: Vitamin THERAPEUTIC TAB PO SCH (08:48)
[2016-12-10] MEDS: Polyethylene Glycol 3350* 17 GM PACKET PO SCH ×2 (09:55→21:00)
[2016-12-10] MEDS: Spiriva Inhaler DEVICE* 1 EACH DEVICE INH SCH (10:00)
[2016-12-10] MEDS: Docusate CAP* 100 MG PO SCH ×2 (10:00→21:00)
[2016-12-10] MEDS ORDERED: Norepinephrine 16MCG/ML IVPRE* 4,000 MCG/250 ML BAG IV SCH (10:22)
[2016-12-10] MEDS: cefTRIAXone VIAL(*) 1,000 MG in NS 0.9% 50 ML* 50 ML IVPB SCH (11:21)
--- NOTE | 2016-12-10 11:58 | PN ---
Progress Note - Progress Note Date of Service: 12/10/16 Note: CRITICAL CARE MEDICINE Date: 12/10/16 Time: 1100 SUBJECTIVE: Patient seen and examined. doing fine. no complaints other then tired. PHYSICAL EXAM: Vital Signs: Reviewed. Neurologic: awake, communicating HEENT: pupils equal. wasting. Sclera anicteric. Trachea midline. Cardiovascular: S1 S2 Respiratory: better airation and less crackles but present bl. Abdomen: Soft, frail. Extremities: Warm. le dep edema LABS: Reviewed. IMAGING: Reviewed. MEDICATIONS: Reviewed. ASSESSMENT: 66 M Severe sepsis sec to cap leading to septic shock - improving Strept pna cap Acute hypoxic resp failure - stable Emphysema - probably needs to be O2 dep Spont ptx on left CLARA -improved Malnutrition severe degree PLAN: Neurologic: communicating. no acute needs. Cardiovascular: Perfusing. wean off levo. has adequate intravascular vol and needs to replete with po alone and dc ivf. Respiratory: heimlich valve clamped. appreciate surgical f/u. copd adjunctives continued. utilized hfo2 to alleviate wob yesterday. better today. wean off slowly. Gastrointestinal: encourage po. prot suppl. follow phos and replete. re-eval swallow when resp improve. may need to consider upper series to eval. continued ppi trial. Renal/Metabolic: clara better. f/u. Infectious Disease: change to C3 alone for stept pna and complete total abx 7 day course. Hematology: stable. hsq Endocrine: avoiding steroids as able. Musculoskeletal: oob. deconditioned. pt f/u virgil Psych/Social: pt expressed understanding. Supportive and preventative care as ordered. SUP: po on ppi VTE prophylaxis: heparin Disposition: ICU Code Status: DNR Critical Care Time: 30min Robinson Wren DO
[2016-12-10] MEDS: Potassium & Sodium Phos 250MG* = 1 PACKET PO SCH ×2 (12:48→21:00)
[2016-12-11] MEDS: Albuterol 2.5 MG/3 ML NEB.SOL* (0.083%) INH SCH ×3 (01:08→13:22)
[2016-12-11] MEDS: Omeprazole CAP* 20 MG PO SCH (05:43)
[2016-12-11] MEDS: Heparin VIAL(*) 5000 UNITS/ML VIAL (FIVE THOUSAND) SUBCUT SCH ×3 (05:43→21:09)
[2016-12-11] MEDS: traMADol TAB* 50 MG PO PRN (06:25)
[2016-12-11] MEDS: Mometasone/Formoter 200/5 MDI INH SCH ×2 (07:28→19:35)
[2016-12-11] MEDS: Tiotropium CAP.INH* CAP.INH/18 MCG INH SCH (07:29)
[2016-12-11] MEDS: Vitamin THERAPEUTIC TAB PO SCH (09:03)
[2016-12-11] MEDS: Polyethylene Glycol 3350* 17 GM PACKET PO SCH ×2 (09:03→21:09)
[2016-12-11] MEDS: Docusate CAP* 100 MG PO SCH ×2 (09:03→21:08)
[2016-12-11] MEDS: Aspirin EC Low Dose* 81 MG TAB.EC PO SCH (09:03)
[2016-12-11] MEDS: Potassium & Sodium Phos 250MG* = 1 PACKET PO SCH ×3 (09:04→21:09)
[2016-12-11] MEDS ORDERED: Furosemide IV* 10 MG/ML VIAL (40 MG) IV SLOW PU ONE (09:39)
--- NOTE | 2016-12-11 09:49 | PN ---
Progress Note - Progress Note Date of Service: 12/11/16 SOAP: Subjective: Pt seen and examined. s/p clamping of pneumothorax tube. No respiratory compromise overnight. Objective: chest: feir insp effort heimlich valve reopened and no air leak cxr reviewed. No ptx; report Pending Assessment: spont ptx possible etiology CAP vs severe malnutrition; chest tube not necessary Plan: tube removed today and dressing applied. plan as per other services. recall surgery as needed.
--- NOTE | 2016-12-11 09:53 | RAD ---
HISTORY: Follow-up pneumothorax COMPARISONS: December 09, 2016 VIEWS:1: Single frontal portable view of the chest at 8:10 AM FINDINGS: LINES AND TUBES: A left-sided chest port is noted. A right-sided PICC line is noted with the tip overlying the cavoatrial junction CARDIOMEDIASTINAL SILHOUETTE: The cardiomediastinal silhouette is normal for portable technique. PLEURA: There are moderate bilateral pleural effusions. There is no appreciable pneumothorax. LUNG PARENCHYMA: There is a diffuse reticular pattern with indistinct pulmonary vessels. There is patchy alveolar desiccation the lung bases bilaterally ABDOMEN: The upper abdomen is clear. There is no subphrenic gas. BONES AND SOFT TISSUES: No bone or soft tissue abnormalities are noted. IMPRESSION: 1. LINES AND TUBES ABOVE. 2. NO APPRECIABLE PNEUMOTHORAX. 3. PULMONARY INTERSTITIAL EDEMA. 4. BILATERAL PLEURAL EFFUSIONS WITH BIBASILAR ATELECTASIS VERSUS CONSOLIDATION
[2016-12-11 09:57] LABS: Hematocrit 32 % (42-52); Mean Corpuscular HGB Conc 31 g/dl (31-36); Mean Corpuscular Hemoglobin 28 pg (27-31); Mean Corpuscular Volume 88 fL (80-94); Mean Platelet Volume 8 um3 (7.4-10.4); Red Blood Count 3.62 10^6/ul (4.0-5.4); Red Cell Distribution Width 18 % (10.5-15); White Blood Count 14.9 10^3/ul (3.5-10.8)
[2016-12-11 10:08] LABS: Calcium 7.8 mg/dL (8.6-10.3); EGFR African American 95.9 (>60); EGFR Non-African American 74.5 (>60); Globulin 2.4 g/dL (2-4); Magnesium 1.8 mg/dL (1.9-2.7); Phosphorus 1.2 mg/dL (2.5-5.0); Potassium 3.9 mmol/L (3.5-5.0); Total Bilirubin 0.4 mg/dL (0.2-1.0); Total Protein 4.4 g/dL (6.4-8.9)
[2016-12-11] MEDS ORDERED: Magnesium Sulfate 2 GM IV* 2 GM/50 ML BAG IVPB ONE (10:32)
--- NOTE | 2016-12-11 10:37 | PN ---
Progress Note - Progress Note Date of Service: 12/11/16 Note: CRITICAL CARE MEDICINE Date: 12/11/16 Time: 900 SUBJECTIVE: Patient seen and examined. states that he is eating; nursing reports low intake PHYSICAL EXAM: Vital Signs: Reviewed. Neurologic: awake, communicating HEENT: pupils equal. wasting. Sclera anicteric. Trachea midline. Cardiovascular: S1 S2 Respiratory: dec bs bl bases, mild crackle Abdomen: Soft, frail. Extremities: Warm. le dep edema LABS: Reviewed. IMAGING: Reviewed. MEDICATIONS: Reviewed. ASSESSMENT: 66 M Severe sepsis sec to cap leading to septic shock - improving Strept pna cap Acute hypoxic resp failure - stable Emphysema - probably needs to be O2 dep Spont ptx on left CLARA -improved Malnutrition severe degree PLAN: Neurologic: communicating. no acute needs. Cardiovascular: Perfusing. off levo. mobilize fluid with lasix today. Respiratory: ct out per sx and doing well. observation. does have larger effusions and basilar pna; mobilize with lasix. Gastrointestinal: encourage po. prot suppl. follow phos and replete. re-eval swallow. consider upper GI +/- GI/EGD when resp status improves. continued ppi trial. Renal/Metabolic: clara better but needs to mobilize water. Infectious Disease: C3 alone for stept pna tx - needs 7 day course. Hematology: stable. hsq Endocrine: avoiding steroids. Musculoskeletal: oob. deconditioned. pt Psych/Social: pt expressed understanding. Supportive and preventative care as ordered. SUP: po on ppi VTE prophylaxis: heparin Disposition: ICU today, probably floor with further diagnostic needs tomorrow. Code Status: DNR Critical Care Time: 26min Robinson Wren DO
[2016-12-11] MEDS ORDERED: Potassium Phosphate IV* 20 MMOLE in NS 0.9% 250 ML* 250 ML IVPB ONE (11:00)
[2016-12-11] MEDS: cefTRIAXone VIAL(*) 1,000 MG in NS 0.9% 50 ML* 50 ML IVPB SCH (11:03)
[2016-12-11] MEDS: Spiriva Inhaler DEVICE* 1 EACH DEVICE INH SCH (12:32)
[2016-12-12] MEDS: Heparin VIAL(*) 5000 UNITS/ML VIAL (FIVE THOUSAND) SUBCUT SCH ×3 (06:03→21:48)
[2016-12-12] MEDS: Omeprazole CAP* 20 MG PO SCH (06:09)
[2016-12-12] MEDS: Polyethylene Glycol 3350* 17 GM PACKET PO SCH ×2 (07:22→20:47)
[2016-12-12] MEDS: Tiotropium CAP.INH* CAP.INH/18 MCG INH SCH (07:52)
[2016-12-12] MEDS: Mometasone/Formoter 200/5 MDI INH SCH ×2 (07:52→20:37)
[2016-12-12] MEDS: Docusate CAP* 100 MG PO SCH ×2 (08:48→20:47)
[2016-12-12] MEDS: Vitamin THERAPEUTIC TAB PO SCH (08:48)
[2016-12-12] MEDS: Aspirin EC Low Dose* 81 MG TAB.EC PO SCH (08:48)
[2016-12-12] MEDS: Potassium & Sodium Phos 250MG* = 1 PACKET PO SCH ×3 (08:48→20:47)
[2016-12-12] MEDS ORDERED: Furosemide IV* 10 MG/ML VIAL (40 MG) IV SLOW PU ONE (10:05)
--- NOTE | 2016-12-12 10:43 | PN ---
Progress Note - Progress Note Date of Service: 12/12/16 Note: CRITICAL CARE MEDICINE Date: 12/12/16 Time: 930 SUBJECTIVE: Patient seen and examined. annoyed that we won't just let him sleep ; otherwise himself. feels he is eating like normal but doesn't like taking all the pills at once. PHYSICAL EXAM: Vital Signs: Reviewed. Neurologic: awake, communicating HEENT: pupils equal. Sclera anicteric. Trachea midline. Cardiovascular: S1 S2 Respiratory: dec bs bl bases. 6LO2, not much expectorant. Abdomen: Soft, frail. Extremities: Warm. le dep edema LABS: Reviewed. IMAGING: Reviewed. MEDICATIONS: Reviewed. ASSESSMENT: 66 M Severe sepsis sec to cap leading to septic shock - improving Strept pna cap Acute hypoxic resp failure - stable Emphysema - probably needs to be O2 dep Spont ptx on left s/p heimlich and removal 12/13 CLARA -improved Malnutrition severe degree PLAN: doing ok. lack of po intake still. states he is not hungry. We discussed his swallow, which again he thinks is normal. will eval with esophagram today as least invasive as doubt he'll actual proceed with an EGD anyway. Haven't started any appetite stimulants. Allow him to mobilize water again today and wean off O2 as he recovers from strept pna and ptx. Eval with cxr again tomorrow to insure recovery. Consider psych eval although he holds capacitance. May need marinol or alt rx. Po encouraged. f/u nutrition. phos. Ok for floor. Pt. social. He is willing to consider snf. Supportive and preventative care as ordered. SUP: trial ppi VTE prophylaxis: heparin Disposition: floor Code Status: DNR Critical Care Time: 25min Robinson Wren DO
[2016-12-12] MEDS: cefTRIAXone VIAL(*) 1,000 MG in NS 0.9% 50 ML* 50 ML IVPB SCH (11:10)
--- NOTE | 2016-12-12 11:54 | PN ---
Progress Note - Progress Note Date of Service: 12/12/16 Note: CRITICAL CARE MEDICINE Date: 12/12/16 Time: 1130 Pt declining esophagram to nursing. I spoke with pt at length. States he is too tired and wants to nap. States that he'll consider doing the test Friday. Explained the rationale and importance of the test and importance of medical compliance. He states he wants to wait till his daughter shows up so she can take him home. I explained his ongoing oxygen needs and severe cachexia and weakness. He states he'll be fine. I explained how he would . "That's ok" he replied. We discussed his lack of desire to help himself. He is upset that we don't feed him and we put things out of his reach by a foot so that he has to move in order to reach them. He states that is not helping. Again, explain the need for mobility and his medical ailments and importance of nutritional intake. We discussed if he would be willing to d/w psychiatrist and he declines. Then states he will be willing to undergo esophagram tomorrow, but he just wants to rest today. Again, explained to him the ill logic in that plan but he can decline the test. He is not safe for any discharge home at this time. Transfer to floor and continued therapy. Disposition: floor Code Status: DNR Critical Care Time: 15min Robinson Wren DO
[2016-12-12] MEDS: Spiriva Inhaler DEVICE* 1 EACH DEVICE INH SCH (14:17)
[2016-12-13] MEDS: Omeprazole CAP* 20 MG PO SCH (05:05)
[2016-12-13] MEDS: Heparin VIAL(*) 5000 UNITS/ML VIAL (FIVE THOUSAND) SUBCUT SCH ×3 (05:06→21:28)
[2016-12-13 05:58] LABS: Hematocrit 27 % (42-52); Hemoglobin 8.6 g/dl (14.0-18.0); Mean Corpuscular HGB Conc 32 g/dl (31-36); Mean Corpuscular Hemoglobin 28 pg (27-31); Mean Corpuscular Volume 87 fL (80-94); Mean Platelet Volume 8 um3 (7.4-10.4); Red Blood Count 3.07 10^6/ul (4.0-5.4); Red Cell Distribution Width 17 % (10.5-15); White Blood Count 6.8 10^3/ul (3.5-10.8)
[2016-12-13 06:08] LABS: Anion Gap 5 mmol/L (2-11); BUN/Creatinine Ratio 28.7 (8-20); Blood Urea Nitrogen 27 mg/dL (6-24); CO2 Carbon Dioxide 33 mmol/L (22-32); Calcium 7.3 mg/dL (8.6-10.3); Chloride 103 mmol/L (101-111); EGFR African American 102.9 (>60); Glucose 96 mg/dL (70-100); Magnesium 1.6 mg/dL (1.9-2.7); Phosphorus 3.2 mg/dL (2.5-5.0); Potassium 3.5 mmol/L (3.5-5.0); Sodium 141 mmol/L (133-145)
[2016-12-13 06:09] LABS: Prealbumin < 3 mg/dL (18-38)
[2016-12-13] MEDS: Mometasone/Formoter 200/5 MDI INH SCH ×2 (07:26→19:36)
[2016-12-13] MEDS: Tiotropium CAP.INH* CAP.INH/18 MCG INH SCH (07:26)
[2016-12-13] MEDS ORDERED: Magnesium Sulfate 2 GM IV* 2 GM/50 ML BAG IVPB ONE (07:50)
[2016-12-13] MEDS: Vitamin THERAPEUTIC TAB PO SCH (08:53)
[2016-12-13] MEDS: traMADol TAB* 50 MG PO PRN (08:54)
[2016-12-13] MEDS: Docusate CAP* 100 MG PO SCH ×2 (08:54→21:28)
[2016-12-13] MEDS: Aspirin EC Low Dose* 81 MG TAB.EC PO SCH (08:54)
--- NOTE | 2016-12-13 09:44 | RAD ---
Indication: Follow-up pneumothorax. 2 views of the chest are reviewed. Bilateral pleural effusions are noted. Left chest tube has been removed with no recurrence of the pneumothorax. Interstitial edema and consolidation is noted. IMPRESSION: Left chest tube has been removed with no evidence of pneumothorax. Bilateral pleural effusion with interstitial edema.
[2016-12-13] MEDS: Polyethylene Glycol 3350* 17 GM PACKET PO SCH ×2 (10:02→21:27)
[2016-12-13] MEDS: Potassium & Sodium Phos 250MG* = 1 PACKET PO SCH ×3 (10:02→21:28)
[2016-12-13] MEDS: cefTRIAXone VIAL(*) 1,000 MG in NS 0.9% 50 ML* 50 ML IVPB SCH (11:21)
[2016-12-13] MEDS: Spiriva Inhaler DEVICE* 1 EACH DEVICE INH SCH (11:21)
--- NOTE | 2016-12-13 14:27 | PN ---
Subjective Date of Service: 12/13/16 Interval History: Patient seen this afternoon. No acute complaints other than significant weakness. Agrees to esophagogram. Not concerned about his weight, says he has always been thin. Denies that he has been declining PT, says he has been too weak. Denies SOB, cough. Family History: Unchanged from Admission Social History: Unchanged from Admission Past Medical History: Unchanged from Admission Objective Active Medications: Acetaminophen (Tylenol Tab*) 650 mg PO Q6H PRN Albuterol (Ventolin 2.5 Mg/3 Ml Neb.Angella*) 2.5 mg INH Q2H PRN Aspirin (Aspirin Ec Low Dose*) 81 mg PO DAILY PEPE Calcium Carbonate (Tums*) 500 mg PO Q4H PRN Device (Tiotropium Inhaler Device*) 1 each INH 0900 PEPE Docusate Sodium (Colace Cap*) 200 mg PO BID PEPE Heparin Sodium (Porcine) (Heparin Vial(*)) 5,000 units SUBCUT Q8HR PEPE Heparin Sodium (Porcine) (Heparin Flush Picc/Ml/Cvc(*)) 1 - 3 ml FLUSH 0600, 1800 PEPE Ceftriaxone Sodium 1,000 mg/ (Sodium Chloride) 50 mls @ 200 mls/hr IVPB Q24H PEPE Melatonin (Melatonin (Nf)) 3 mg PO BEDTIME PRN; Protocol Mometasone Furoate/Formoterol Fumar (Dulera 200/5 Mdi*) 2 puff INH BID PEPE Multivitamins (Theragran Tab*) 1 tab PO DAILY PEPE Nicotine (Nicotine Inhaler*) 10 mg INH Q2H PRN Omeprazole (Prilosec Cap*) 20 mg PO DAILY@0600 PEPE Polyethylene Glycol/Electrolytes (Miralax*) 17 gm PO 0800,2100 PEPE Potassium Phos/Sodium Phos (Neutra Phos 250 Mg Clarence*) 250 mg PO TID PEPE Sodium Biphosphate/Sodium Phosphate (Fleet Enema*) 1 bottle [place] DAILY PRN Tiotropium [place] (Spiriva Cap.Inh*) 1 cap INH DAILY PEPE Tramadol HCl (Ultram*) 50 mg PO Q12H PRN Vital Signs 12/12/16 12/12/16 12/12/16 14:25 15:56 20:00 Temperature 98.4 F Pulse Rate 108 36 90 Respiratory 20 18 Rate Blood Pressure 106/50 (mmHg) O2 Sat by Pulse 98 94 Oximetry 12/13/16 12/13/16 12/13/16 10:54 11:41 12:54 Temperature 97.6 F Pulse Rate 96 Respiratory 18 18 18 Rate Blood Pressure 107/35 (mmHg) O2 Sat by Pulse 95 Oximetry Oxygen Devices in Use Now: Nasal Cannula - 5L Appearance: Middle-aged, M, cachectic, laying in bed in NAD Eyes: No Scleral Icterus Ears/Nose/Mouth/Throat: Mucous Membranes Moist Neck: NL Appearance and Movements; NL JVP Respiratory: Symmetrical Chest Expansion and Respiratory Effort, - - Diminshed BS in bases laterally, patient says he is unable to sit up or turn on his side Cardiovascular: NL Sounds; No Murmurs; No JVD, RRR Abdominal: NL Sounds; No Tenderness; No Distention Lymphatic: No Cervical Adenopathy Extremities: No Edema Neurological: Alert and Oriented x 3 Result Diagrams: 12/13/16 05:22 12/13/16 05:22 Microbiology and Other Data: Microbiology 12/07/16 23:11 Aerobic Blood Culture - Final Blood Venous No Growth Day 5 Anaerobic Blood Culture - Final No Growth Day 5 Blood Culture - Final 12/07/16 22:10 Aerobic Blood Culture - Final Blood Venous No Growth Day 5 Anaerobic Blood Culture - Final No Growth Day 5 Blood Culture - Final 12/08/16 03:39 Urine Culture - Final Urine 12/08/16 03:39 Legionella Urinary Antigen - Final Urine Negative Legionella Streptococcus pneumoniae Ag Screen - Final Positive S. Pneumo Antigen 12/07/16 23:42 Nasal Screen MRSA (PCR)(GERARDO) - Final Nasal Mrsa Negative Assess/Plan/Problems-Billing Assessment: Mr. Doan is a 66yo M with limited contact with the medical system, who presented to ED with dyspnea, found to have left pneumothorax and sepsis secondary to pneumonia, required ICU stay for hypotension requiring pressor therapy - Patient Problems (1) Severe sepsis Current Visit: Yes Comment: Patient met sepsis criteria on admission with leukocytosis and tachycardia, also found to have CLARA. Source is pneumonia. Developed septic shock with need for vasopressor therapy. (2) Pneumonia Current Visit: Yes Comment: S. pneumo urine antigen positive. Continue IV CTX for now, Day 6. (3) Acute respiratory failure with hypoxia Current Visit: Yes Comment: PTX s/p chest tube placement and removal, PNA, likely underlying COPD. Redose with IV Lasix. (4) Anemia Current Visit: Yes Comment: Hb has been trending down along with other cell lines. Suspect ACD. Will check iron studies and B12, folate. Stool guaiac. (5) CLARA (acute kidney injury) Current Visit: Yes Comment: Resolved (6) Severe protein-calorie malnutrition Current Visit: Yes Comment: BMI 20 (?error in previous weight), prealbumin < 3. Nutrition consult. Esophagogram today. Conisder appetite stimulant. (7) Pneumothorax Current Visit: Yes Comment: Apprecaite surgery assistance, chest tube removed , no residual PTX on CXR (8) COPD (chronic obstructive pulmonary disease) Current Visit: Yes Comment: Continue Spiriva, Dulera, prn albuterol (9) DVT prophylaxis Current Visit: Yes Comment: - SQ heparin. (10) Full code status Current Visit: Yes Status and Disposition: Inpatient. Encouraged PT participation.
[2016-12-13] MEDS ORDERED: Furosemide IV* 10 MG/ML VIAL (40 MG) IV ONE (14:28)
[2016-12-13] MEDS ORDERED: Furosemide IV* 10 MG/ML VIAL (40 MG) ONE (14:33)
[2016-12-13] MEDS: Acetaminophen TAB* 325 MG PO PRN (14:43)
--- NOTE | 2016-12-13 14:47 | RAD ---
INDICATION: Cachexia COMPARISON: CT December 07, 2016 TECHNIQUE: Barium was administered per os and digital fluoroscopy of the esophagus was performed. 0.5 minutes of fluoroscopy was utilized. This is a limited study performed in a semirecumbent position Esophagus: The patient swallowed barium adequately in a semirecumbent position. No fixed stricture or mass was identified. There were discoordinated peristaltic contractions with diffuse, intermittent, esophageal spasm. GE junction: The GE junction is normally positioned. There is no hiatal hernia. Other: None. IMPRESSION: DISCOORDINATED SWALLOWING WITH DIFFUSE, INTERMITTENT ESOPHAGEAL SPASM CPT II Codes: 6045F PQRS (Fluoro time doc)
[2016-12-13 14:56] LABS: Total Iron Binding Capacity 112 mcg/dL (250-450); Transferrin 80 mg/dL (203-362)
[2016-12-13 15:17] LABS: Ferritin 761.2 ng/mL (24-336)
[2016-12-13 15:21] LABS: Folate 7.52 ng/mL (>3.99)
[2016-12-13 15:22] LABS: Vitamin B12 476 pg/mL (180-914)
[2016-12-13 18:27] LABS: Iron < 15 ug/dL (50-212)
[2016-12-14] MEDS: Heparin VIAL(*) 5000 UNITS/ML VIAL (FIVE THOUSAND) SUBCUT SCH ×3 (05:24→22:41)
[2016-12-14] MEDS: Omeprazole CAP* 20 MG PO SCH (05:24)
[2016-12-14 05:58] LABS: Hematocrit 29 % (42-52); Hemoglobin 9.4 g/dl (14.0-18.0); Mean Corpuscular HGB Conc 32 g/dl (31-36); Mean Corpuscular Hemoglobin 28 pg (27-31); Mean Corpuscular Volume 87 fL (80-94); Mean Platelet Volume 8 um3 (7.4-10.4); Red Blood Count 3.36 10^6/ul (4.0-5.4); Red Cell Distribution Width 17 % (10.5-15); White Blood Count 6.3 10^3/ul (3.5-10.8)
[2016-12-14 06:48] LABS: BUN/Creatinine Ratio 29.5 (8-20); Calcium 7.6 mg/dL (8.6-10.3); EGFR African American 111.1 (>60); EGFR Non-African American 86.4 (>60); Magnesium 1.9 mg/dL (1.9-2.7); Potassium 3.5 mmol/L (3.5-5.0)
[2016-12-14] MEDS: Mometasone/Formoter 200/5 MDI INH SCH ×2 (08:00→19:39)
[2016-12-14] MEDS: Tiotropium CAP.INH* CAP.INH/18 MCG INH SCH (08:01)
[2016-12-14] MEDS: Potassium & Sodium Phos 250MG* = 1 PACKET PO SCH ×3 (10:32→20:13)
[2016-12-14] MEDS: Polyethylene Glycol 3350* 17 GM PACKET PO SCH ×2 (10:33→20:13)
[2016-12-14] MEDS: Vitamin THERAPEUTIC TAB PO SCH (10:33)
[2016-12-14] MEDS: cefTRIAXone VIAL(*) 1,000 MG in NS 0.9% 50 ML* 50 ML IVPB SCH (10:33)
[2016-12-14] MEDS: Aspirin EC Low Dose* 81 MG TAB.EC PO SCH (10:33)
[2016-12-14] MEDS: Docusate CAP* 100 MG PO SCH ×2 (10:33→20:12)
[2016-12-14] MEDS ORDERED: Furosemide IV* 10 MG/ML 2 ML VIAL (20 MG) IV ONE (13:00)
--- NOTE | 2016-12-14 13:56 | PN ---
Subjective Date of Service: 12/14/16 Interval History: Patient seen this afternoon. Reports some throat pain with swallowing, reviewed esophagogram with him, he is agreeable to CCB to see if this helps. Still has not gotten out of bed and resisted attempts earlier in the day. [id number] present who will help, I encouraged again and he seems agreeable to get OOB now. Denies SOB, has been weaned to 2L. Family History: Unchanged from Admission Social History: Unchanged from Admission Past Medical History: Unchanged from Admission Objective Active Medications: Acetaminophen (Tylenol Tab*) 650 mg PO Q6H PRN Albuterol (Ventolin 2.5 Mg/3 Ml Neb.Angella*) 2.5 mg INH Q2H PRN Aspirin (Aspirin Ec Low Dose*) 81 mg PO DAILY PEPE Calcium Carbonate (Tums*) 500 mg PO Q4H PRN Device (Tiotropium Inhaler Device*) 1 each INH 0900 PEPE Diltiazem HCl (Cardizem Tab*) 30 mg PO Q6HR PEPE Docusate Sodium (Colace Cap*) 200 mg PO BID PEPE Heparin Sodium (Porcine) (Heparin Vial(*)) 5,000 units SUBCUT Q8HR PEPE Heparin Sodium (Porcine) (Heparin Flush Picc/Ml/Cvc(*)) 1 - 3 ml FLUSH 0600, 1800 PEPE Ceftriaxone Sodium 1,000 mg/ (Sodium Chloride) 50 mls @ 200 mls/hr IVPB Q24H PEPE Melatonin (Melatonin (Nf)) 3 mg PO BEDTIME PRN; Protocol Mometasone Furoate/Formoterol Fumar (Dulera 200/5 Mdi*) 2 puff INH BID PEPE Multivitamins (Theragran Tab*) 1 tab PO DAILY PEPE Nicotine (Nicotine Inhaler*) 10 mg INH Q2H PRN Omeprazole (Prilosec Cap*) 20 mg PO DAILY@0600 PEPE Polyethylene Glycol/Electrolytes (Miralax*) 17 gm PO 0800,2100 PEPE Potassium Phos/Sodium Phos (Neutra Phos 250 Mg [place]*) 250 mg PO TID PEPE Sodium Biphosphate/Sodium Phosphate (Fleet Enema*) 1 bottle WA DAILY PRN Tiotropium [place] (Spiriva Cap.Inh*) 1 cap INH DAILY PEPE Tramadol HCl (Ultram*) 50 mg PO Q12H PRN Vital Signs 12/13/16 12/13/16 12/13/16 16:00 16:06 19:42 Temperature 97.1 F Pulse Rate 76 77 Respiratory 22 16 Rate Blood Pressure 115/46 (mmHg) O2 Sat by Pulse 95 96 95 Oximetry 12/14/16 11:31 Temperature 97.6 F Pulse Rate 88 Respiratory 21 Rate Blood Pressure 103/55 (mmHg) O2 Sat by Pulse 95 Oximetry Oxygen Devices in Use Now: Nasal Cannula - 2L Appearance: Middle-aged, cachectic M, laying in bed in NAD Eyes: No Scleral Icterus Ears/Nose/Mouth/Throat: Mucous Membranes Moist Neck: NL Appearance and Movements; NL JVP Respiratory: Symmetrical Chest Expansion and Respiratory Effort, - - Diminished BS and rales in B/L bases Cardiovascular: NL Sounds; No Murmurs; No JVD, RRR Abdominal: NL Sounds; No Tenderness; No Distention Lymphatic: No Cervical Adenopathy Extremities: - - B/L pitting edema in the ankles Skin: No Rash or Ulcers Neurological: Alert and Oriented x 3 Result Diagrams: 12/14/16 05:30 12/14/16 05:30 Assess/Plan/Problems-Billing Assessment: Mr. Doan is a 66yo M with limited contact with the medical system, who presented to ED with dyspnea, found to have left pneumothorax and sepsis secondary to pneumonia, required ICU stay for hypotension requiring pressor therapy - Patient Problems (1) Severe sepsis Current Visit: Yes Comment: Patient met sepsis criteria on admission with leukocytosis and tachycardia, also found to have CLARA. Source is pneumonia. Developed septic shock with need for vasopressor therapy. (2) Pneumonia Current Visit: Yes Comment: S. pneumo urine antigen positive. Continue IV CTX for now, Day 7 (3) Acute respiratory failure with hypoxia Current Visit: Yes Comment: PTX s/p chest tube placement and removal, PNA, likely underlying COPD. Redose with IV Lasix 20 mg today. O2 weaned to 2L (4) Diffuse esophageal spasm Current Visit: Yes Comment: May be contributing to weight loss, patient does report some throat pain with swallowing. Will start low dose Diltiazem. Can consider EGD if patient agreeable. (5) Anemia Current Visit: Yes Comment: Hb up a bit today. Ferritin elevated, likely ACD as well as increase as acute phase reactant (6) CLARA (acute kidney injury) Current Visit: Yes Comment: Resolved (7) Severe protein-calorie malnutrition Current Visit: Yes Comment: BMI 20 (?error in previous weight), prealbumin < 3. Appreciate nutrition consult. (8) Pneumothorax Current Visit: Yes Comment: Appreciate surgery assistance, chest tube removed , no residual PTX on CXR (9) COPD (chronic obstructive pulmonary disease) Current Visit: Yes Comment: Continue Spiriva, Dulera, prn albuterol (10) DVT prophylaxis Current Visit: Yes Comment: - SQ heparin. (11) Full code status Current Visit: Yes Status and Disposition: Inpatient. Encouraged PT participation, will likely need rehab
[2016-12-14] MEDS: Diltiazem TAB* 30 MG PO SCH ×2 (18:08→23:20)
[2016-12-14] MEDS: Spiriva Inhaler DEVICE* 1 EACH DEVICE INH SCH (18:08)
[2016-12-15] MEDS: Heparin VIAL(*) 5000 UNITS/ML VIAL (FIVE THOUSAND) SUBCUT SCH ×3 (05:37→22:27)
[2016-12-15] MEDS: Diltiazem TAB* 30 MG PO SCH ×3 (05:37→17:39)
[2016-12-15] MEDS: Omeprazole CAP* 20 MG PO SCH (05:37)
[2016-12-15 06:44] LABS: BUN/Creatinine Ratio 27.9 (8-20); Calcium 7.6 mg/dL (8.6-10.3); EGFR African American 114.1 (>60); EGFR Non-African American 88.7 (>60); Potassium 3.6 mmol/L (3.5-5.0)
[2016-12-15] MEDS: Aspirin EC Low Dose* 81 MG TAB.EC PO SCH (08:15)
[2016-12-15] MEDS: Vitamin THERAPEUTIC TAB PO SCH (08:15)
[2016-12-15] MEDS: Polyethylene Glycol 3350* 17 GM PACKET PO SCH ×2 (08:15→20:54)
[2016-12-15] MEDS: Docusate CAP* 100 MG PO SCH ×2 (08:15→20:54)
[2016-12-15] MEDS: Potassium & Sodium Phos 250MG* = 1 PACKET PO SCH ×3 (08:15→20:54)
[2016-12-15] MEDS: Tiotropium CAP.INH* CAP.INH/18 MCG INH SCH (08:24)
[2016-12-15] MEDS: Mometasone/Formoter 200/5 MDI INH SCH ×2 (08:26→19:39)
--- NOTE | 2016-12-15 09:58 | PN ---
Subjective Date of Service: 12/15/16 Interval History: Called to see patient for acute onset of SOB/hypoxia. Patient reports no events overnight, breathing has been stable. This morning got up with assistance into the chair and acutely became SOB. Hypoxia worsened and currently requiring 15L mask with O2 sats in mid-high 80s. Not coughing, denies chest pain. Family History: Unchanged from Admission Social History: Unchanged from Admission Past Medical History: Unchanged from Admission Objective Active Medications: Acetaminophen (Tylenol Tab*) 650 mg PO Q6H PRN Albuterol (Ventolin 2.5 Mg/3 Ml Neb.Angella*) 2.5 mg INH Q2H PRN Aspirin (Aspirin Ec Low Dose*) 81 mg PO DAILY PEPE Calcium Carbonate (Tums*) 500 mg PO Q4H PRN Device (Tiotropium Inhaler Device*) 1 each INH 0900 PEPE Diltiazem HCl (Cardizem Tab*) 30 mg PO Q6HR PEPE Docusate Sodium (Colace Cap*) 200 mg PO BID PPEE Heparin Sodium (Porcine) (Heparin Vial(*)) 5,000 units SUBCUT Q8HR PEPE Heparin Sodium (Porcine) (Heparin Flush Picc/Ml/Cvc(*)) 1 - 3 ml FLUSH 0600, 1800 PEPE Melatonin (Melatonin (Nf)) 3 mg PO BEDTIME PRN; Protocol Mometasone Furoate/Formoterol Fumar (Dulera 200/5 Mdi*) 2 puff INH BID PEPE Multivitamins (Theragran Tab*) 1 tab PO DAILY PEPE Nicotine (Nicotine Inhaler*) 10 mg INH Q2H PRN Omeprazole (Prilosec Cap*) 20 mg PO DAILY@0600 PEEP Polyethylene Glycol/Electrolytes (Miralax*) 17 gm PO 0800,2100 PEPE Potassium Phos/Sodium Phos (Neutra Phos 250 Mg [place]*) 250 mg PO TID PEPE Sodium Biphosphate/Sodium Phosphate (Fleet Enema*) 1 bottle [place] DAILY PRN Tiotropium [place] (Spiriva Cap.Inh*) 1 cap INH DAILY PEPE Vital Signs 12/14/16 12/14/16 12/14/16 11:31 15:42 18:09 Temperature 97.6 F 97.8 F Pulse Rate 88 66 80 Respiratory 21 16 Rate Blood Pressure 103/55 122/61 (mmHg) O2 Sat by Pulse 95 92 Oximetry 12/15/16 12/15/16 12/15/16 04:05 06:32 07:36 Temperature 97.3 F 100.2 F 97.5 F Pulse Rate 62 88 66 Respiratory 16 16 18 Rate Blood Pressure 118/45 140/82 110/52 (mmHg) O2 Sat by Pulse 92 96 92 Oximetry Oxygen Devices in Use Now: Simple Face Mask - 15L Appearance: Middle-aged, M, sitting in chair, in moderate respiratory distress Eyes: No Scleral Icterus Ears/Nose/Mouth/Throat: - - Dry MM Neck: NL Appearance and Movements; NL JVP Respiratory: - - Tachypnea, no wheezing appreciated, diminished/absent BS in bases and lateral lungs B/L Cardiovascular: - - Mild tachycardia Abdominal: NL Sounds; No Tenderness; No Distention Lymphatic: No Cervical Adenopathy Extremities: - - Mild LE edema B/L Skin: No Rash or Ulcers Neurological: Alert and Oriented x 3 Result Diagrams: 12/14/16 05:30 12/15/16 05:40 Assess/Plan/Problems-Billing Assessment: Mr. Doan is a 66yo M with limited contact with the medical system, who presented to ED with dyspnea, found to have left pneumothorax and sepsis secondary to pneumonia, required ICU stay for hypotension requiring pressor therapy - Patient Problems (1) Acute respiratory failure with hypoxia Current Visit: Yes Comment: Acute worsening this morning, requiring 15L facemask with sats in mid-high 80s. Will transfer to ICU. Stat CXR. Hopefully patient does not have reucrrent PTX. If nothing clearly abnormal on CXR consider CTA. (2) Severe sepsis Current Visit: Yes Comment: Patient met sepsis criteria on admission with leukocytosis and tachycardia, also found to have CLARA. Source is pneumonia. Developed septic shock with need for vasopressor therapy. (3) Pneumonia Current Visit: Yes Comment: S. pneumo urine antigen positive. Completed 7 days of ABx. (4) Diffuse esophageal spasm Current Visit: Yes Comment: May be contributing to weight loss, patient does report some throat pain with swallowing. Will start low dose Diltiazem. Can consider EGD if patient agreeable. (5) Anemia Current Visit: Yes Comment: Ferritin elevated, likely ACD as well as increase as acute phase reactant (6) CLARA (acute kidney injury) Current Visit: Yes Comment: Resolved (7) Severe protein-calorie malnutrition Current Visit: Yes Comment: BMI 20 (?error in previous weight), prealbumin < 3. Appreciate nutrition consult. (8) Pneumothorax Current Visit: Yes Comment: Appreciate surgery assistance, chest tube removed earlier this admission, no residual PTX on CXR however concern for recurrence, repeat CXR pending. (9) COPD (chronic obstructive pulmonary disease) Current Visit: Yes Comment: Continue Spiriva, Dulera, prn albuterol (10) DVT prophylaxis Current Visit: Yes Comment: - SQ heparin. (11) Full code status Current Visit: Yes Status and Disposition: Inpatient. ADDENDUM: CXR shows recurrent L pneumothorax. Patient transferred to ICU and placed on Vapotherm. Dr. Quiñones consulted who saw the patient urgently and placed a chest tube at the bedside. Repeat CXR shows reduction in size of PTX. Continue to monitor in ICU.
--- NOTE | 2016-12-15 10:48 | RAD ---
Indication: Shortness of breath hypoxia. Single frontal view of the chest performed at 1000 hours was reviewed. Comparison is made with previous exam dated December 13, 2016. Large left pneumothorax is noted. Right pleural effusion is noted. Chronic interstitial disease is noted. Central line is in place. IMPRESSION: LARGE LEFT PNEUMOTHORAX.
--- NOTE | 2016-12-15 11:47 | PN ---
Progress Note - Progress Note Date of Service: 12/15/16 Note: Surgery Mr. Doan noted to have recurrent left pntx today. Procedure Note Under sterile conditions, using 1% LIdocaine a left 28F CT placed in the ~5th ICS. Pt. tolerated procedure well. pCXR pnd. CLFoster
--- NOTE | 2016-12-15 13:56 | RAD ---
Indication: Follow-up left pneumothorax. Single frontal view of the chest performed at 1215 hours was reviewed. Comparison is made with previous exam dated earlier the same day. Previously identified left pneumothorax is no longer present. Left chest tube remains in place. Bilateral pleural effusions are noted. IMPRESSION: NO ACTIVE CARDIOPULMONARY DISEASE IS NOTED. LEFT CHEST TUBE IN PLACE WITH REDUCTION OF LEFT PNEUMOTHORAX.
[2016-12-16] MEDS: Diltiazem TAB* 30 MG PO SCH ×5 (00:11→23:39)
[2016-12-16] MEDS: Spiriva Inhaler DEVICE* 1 EACH DEVICE INH SCH ×2 (00:59→13:55)
[2016-12-16] MEDS: Heparin VIAL(*) 5000 UNITS/ML VIAL (FIVE THOUSAND) SUBCUT SCH (06:12)
[2016-12-16] MEDS: Omeprazole CAP* 20 MG PO SCH (06:12)
[2016-12-16 06:22] LABS: BUN/Creatinine Ratio 27.6 (8-20); Calcium 7.7 mg/dL (8.6-10.3); EGFR African American 112.6 (>60); EGFR Non-African American 87.5 (>60); Magnesium 1.7 mg/dL (1.9-2.7); Potassium 3.6 mmol/L (3.5-5.0)
--- NOTE | 2016-12-16 06:57 | PN ---
Progress Note - Progress Note Date of Service: 12/16/16 Note: Surgery Mr. Doan is sleeping, I did not awaken. Vital Signs 12/15/16 12/15/16 12/15/16 07:36 08:00 08:28 Temperature 97.5 F Pulse Rate 66 84 Respiratory 18 16 16 Rate Blood Pressure 110/52 (mmHg) O2 Sat by Pulse 92 92 Oximetry 12/15/16 12/15/16 12/15/16 10:13 10:24 10:30 Temperature 97.8 F Pulse Rate 95 104 66 Respiratory 32 23 23 Rate Blood Pressure 137/70 (mmHg) O2 Sat by Pulse 91 96 Oximetry 12/15/16 12/15/16 12/15/16 10:31 10:45 10:46 Temperature Pulse Rate 112 119 Respiratory 36 24 24 Rate Blood Pressure 113/84 144/77 (mmHg) O2 Sat by Pulse 96 82 Oximetry 12/15/16 12/15/16 12/15/16 10:47 11:00 11:01 Temperature 98.7 F Pulse Rate 99 126 92 Respiratory 28 23 34 Rate Blood Pressure 144/77 115/74 (mmHg) O2 Sat by Pulse 96 81 96 Oximetry 12/15/16 12/15/16 12/15/16 11:15 11:16 11:30 Temperature Pulse Rate 88 109 99 Respiratory 30 24 32 Rate Blood Pressure 120/68 112/68 (mmHg) O2 Sat by Pulse 97 95 96 Oximetry 12/15/16 12/15/16 12/15/16 11:45 11:46 12:00 Temperature 100.1 F Pulse Rate 98 109 120 Respiratory 35 31 29 Rate Blood Pressure 112/72 113/87 (mmHg) O2 Sat by Pulse 100 100 85 Oximetry 12/15/16 12/15/16 12/15/16 12:15 12:16 12:30 Temperature Pulse Rate 109 98 100 Respiratory 24 20 23 Rate Blood Pressure 110/81 100/70 (mmHg) O2 Sat by Pulse 97 99 100 Oximetry 12/15/16 12/15/16 12/15/16 12:31 12:45 13:00 Temperature Pulse Rate 102 103 130 Respiratory 27 19 20 Rate Blood Pressure 112/75 (mmHg) O2 Sat by Pulse 100 100 86 Oximetry 12/15/16 12/15/16 12/15/16 13:05 13:15 13:16 Temperature Pulse Rate 113 96 109 Respiratory 26 30 35 Rate Blood Pressure 104/60 91/72 (mmHg) O2 Sat by Pulse 97 100 100 Oximetry 12/15/16 12/15/16 12/15/16 13:30 13:31 13:45 Temperature Pulse Rate 98 104 103 Respiratory 22 21 24 Rate Blood Pressure 90/63 115/62 (mmHg) O2 Sat by Pulse 100 100 100 Oximetry 12/15/16 12/15/16 12/15/16 13:46 14:00 14:01 Temperature Pulse Rate 102 108 Respiratory 19 24 25 Rate Blood Pressure 99/69 (mmHg) O2 Sat by Pulse 98 98 Oximetry 12/15/16 12/15/16 12/15/16 14:15 14:16 14:30 Temperature Pulse Rate 101 103 111 Respiratory 25 24 26 Rate Blood Pressure 99/72 104/67 (mmHg) O2 Sat by Pulse 100 100 99 Oximetry 12/15/16 12/15/16 12/15/16 14:31 14:45 15:00 Temperature Pulse Rate 107 92 104 Respiratory 25 24 27 Rate Blood Pressure 101/69 108/70 (mmHg) O2 Sat by Pulse 100 98 100 Oximetry 12/15/16 12/15/16 12/15/16 15:01 15:15 15:16 Temperature Pulse Rate 113 104 103 Respiratory 34 41 46 Rate Blood Pressure 108/62 (mmHg) O2 Sat by Pulse 100 100 100 Oximetry 12/15/16 12/15/16 12/15/16 15:21 15:30 15:31 Temperature 100.6 F Pulse Rate 98 103 Respiratory 30 26 Rate Blood Pressure 101/60 (mmHg) O2 Sat by Pulse 98 98 Oximetry 12/15/16 12/15/16 12/15/16 15:45 15:46 16:00 Temperature Pulse Rate 100 106 92 Respiratory 34 27 31 Rate Blood Pressure 118/64 103/64 (mmHg) O2 Sat by Pulse 99 100 97 Oximetry 12/15/16 12/15/16 12/15/16 16:01 16:15 16:16 Temperature Pulse Rate 88 96 97 Respiratory 29 23 30 Rate Blood Pressure 112/65 (mmHg) O2 Sat by Pulse 97 95 100 Oximetry 12/15/16 12/15/16 12/15/16 16:30 16:31 16:45 Temperature Pulse Rate 98 103 92 Respiratory 42 19 29 Rate Blood Pressure 112/78 111/69 (mmHg) O2 Sat by Pulse 97 94 100 Oximetry 12/15/16 12/15/16 12/15/16 16:46 17:00 17:15 Temperature Pulse Rate 99 104 92 Respiratory 33 22 33 Rate Blood Pressure 113/67 107/69 (mmHg) O2 Sat by Pulse 100 100 100 Oximetry 12/15/16 12/15/16 12/15/16 17:30 17:45 18:00 Temperature Pulse Rate 99 96 Respiratory 32 27 26 Rate Blood Pressure 116/69 108/64 120/59 (mmHg) O2 Sat by Pulse 100 100 Oximetry 12/15/16 12/15/16 12/15/16 18:15 18:16 18:30 Temperature Pulse Rate 92 100 Respiratory 26 24 31 Rate Blood Pressure 117/64 111/60 (mmHg) O2 Sat by Pulse 99 100 Oximetry 12/15/16 12/15/16 12/15/16 18:45 18:46 19:00 Temperature Pulse Rate 86 95 91 Respiratory 42 44 27 Rate Blood Pressure 111/57 115/62 (mmHg) O2 Sat by Pulse 98 100 100 Oximetry 12/15/16 12/15/16 12/15/16 19:01 19:15 19:27 Temperature 100.1 F Pulse Rate 87 100 Respiratory 31 32 Rate Blood Pressure 108/60 (mmHg) O2 Sat by Pulse 99 100 Oximetry 12/15/16 12/15/16 12/15/16 19:30 19:31 19:45 Temperature Pulse Rate 100 93 88 Respiratory 32 30 30 Rate Blood Pressure 97/69 (mmHg) O2 Sat by Pulse 100 100 82 Oximetry 12/15/16 12/15/16 12/15/16 19:46 20:00 20:01 Temperature Pulse Rate 85 85 94 Respiratory 31 25 30 Rate Blood Pressure 102/75 122/65 (mmHg) O2 Sat by Pulse 100 98 99 Oximetry 12/15/16 12/15/16 12/15/16 20:15 20:16 20:30 Temperature Pulse Rate 86 86 103 Respiratory 28 25 24 Rate Blood Pressure 124/71 (mmHg) O2 Sat by Pulse 100 100 81 Oximetry 12/15/16 12/15/16 12/15/16 20:31 20:45 20:46 Temperature Pulse Rate 87 85 91 Respiratory 24 30 28 Rate Blood Pressure 113/71 116/59 (mmHg) O2 Sat by Pulse 100 100 100 Oximetry 12/15/16 12/15/1617 21:00 21:01 21:15 Temperature Pulse Rate 101 99 84 Respiratory 15 21 24 Rate Blood Pressure 116/61 111/66 (mmHg) O2 Sat by Pulse 90 100 100 Oximetry 12/15/16 12/15/16 12/15/16 21:30 21:31 21:45 Temperature Pulse Rate 87 87 86 Respiratory 25 25 22 Rate Blood Pressure 104/70 111/64 (mmHg) O2 Sat by Pulse 100 100 Oximetry 12/15/16 12/15/16 12/15/16 21:46 22:00 22:01 Temperature Pulse Rate 85 97 87 Respiratory 23 22 31 Rate Blood Pressure 108/70 (mmHg) O2 Sat by Pulse 100 100 100 Oximetry 12/15/16 12/15/16 12/15/16 22:06 22:15 22:16 Temperature Pulse Rate 95 97 86 Respiratory 28 17 17 Rate Blood Pressure 108/75 (mmHg) O2 Sat by Pulse 100 100 100 Oximetry 12/15/16 12/15/16 12/15/16 22:30 22:31 22:45 Temperature Pulse Rate 94 92 90 Respiratory 27 34 26 Rate Blood Pressure 109/68 111/68 (mmHg) O2 Sat by Pulse 100 100 100 Oximetry 12/15/16 12/15/16 12/15/16 22:46 23:00 23:01 Temperature Pulse Rate 89 92 103 Respiratory 26 21 33 Rate Blood Pressure 112/65 (mmHg) O2 Sat by Pulse 100 100 100 Oximetry 12/15/16 12/15/16 12/15/16 23:15 23:16 23:30 Temperature Pulse Rate 84 79 82 Respiratory 19 19 33 Rate Blood Pressure 113/65 116/69 (mmHg) O2 Sat by Pulse 100 100 100 Oximetry 12/15/16 12/15/16 12/16/16 23:45 23:46 00:00 Temperature 100.6 F Pulse Rate 90 87 Respiratory 19 26 Rate Blood Pressure 116/62 115/71 (mmHg) O2 Sat by Pulse 99 100 Oximetry 12/16/16 12/16/16 12/16/16 00:15 00:30 00:45 Temperature Pulse Rate 96 88 92 Respiratory 28 20 22 Rate Blood Pressure 111/68 108/66 (mmHg) O2 Sat by Pulse 100 100 100 Oximetry 12/16/16 12/16/16 12/16/16 01:00 01:01 01:03 Temperature Pulse Rate 81 81 Respiratory 27 26 Rate Blood Pressure 112/69 (mmHg) O2 Sat by Pulse 99 100 98 Oximetry 12/16/16 12/16/16 12/16/16 01:15 01:30 01:45 Temperature Pulse Rate 86 95 85 Respiratory 29 22 23 Rate Blood Pressure 113/62 (mmHg) O2 Sat by Pulse 100 100 100 Oximetry 12/16/16 12/16/16 12/16/16 02:00 02:15 02:30 Temperature Pulse Rate 85 87 76 Respiratory 22 18 31 Rate Blood Pressure 112/70 113/69 (mmHg) O2 Sat by Pulse 100 100 100 Oximetry 12/16/16 12/16/16 12/16/16 02:45 03:00 03:01 Temperature Pulse Rate 91 85 96 Respiratory 24 25 22 Rate Blood Pressure 119/68 (mmHg) O2 Sat by Pulse 100 99 100 Oximetry 12/16/16 12/16/16 12/16/16 03:15 03:30 03:31 Temperature Pulse Rate 83 97 84 Respiratory 22 20 23 Rate Blood Pressure 103/66 (mmHg) O2 Sat by Pulse 100 100 100 Oximetry 12/16/16 12/16/16 12/16/16 03:45 04:00 04:15 Temperature 100.1 F Pulse Rate 92 90 86 Respiratory 16 12 16 Rate Blood Pressure 105/64 (mmHg) O2 Sat by Pulse 100 100 100 Oximetry 12/16/16 12/16/16 12/16/16 04:30 04:31 04:45 Temperature Pulse Rate 81 78 86 Respiratory 19 17 27 Rate Blood Pressure 121/56 (mmHg) O2 Sat by Pulse 99 100 100 Oximetry 12/16/16 12/16/16 12/16/16 05:00 05:15 05:30 Temperature Pulse Rate 84 91 81 Respiratory 23 9 18 Rate Blood Pressure 111/63 111/59 (mmHg) O2 Sat by Pulse 100 100 100 Oximetry 12/16/16 12/16/16 12/16/16 05:31 05:45 06:00 Temperature Pulse Rate 85 81 80 Respiratory 25 24 18 Rate Blood Pressure 102/51 (mmHg) O2 Sat by Pulse [address], no air leak, some serous drainage, good respiratory variation. CXR yesterday showed lung up. Intake & Output 08/13/17 08/13/17 08/14/17 14:59 22:59 06:59 Intake Total 120 200 120 Output Total 700 215 50 Balance -580 -15 70 Weight 101 lb 3.075 oz Intake: Oral 120 200 120 Output: Chest Tube #1 600 40 50 Urine 100 175 0 Laboratory Results - last 24 hr 12/15/16 12/16/16 05:40 05:25 Sodium 141 Potassium 3.6 Chloride 100 L Carbon Dioxide 36 H Anion Gap 5 BUN 24 Creatinine 0.87 Est GFR ( Amer) 112.6 Est GFR (Non-Af Amer) 87.5 BUN/Creatinine Ratio 27.6 H Glucose 70 94 Calcium 7.7 L Magnesium 1.7 L A/P: Continue CT, will repeat CXR. CLFoster
--- NOTE | 2016-12-16 08:22 | PN ---
Subjective Date of Service: 12/16/16 Interval History: Patient seen this morning. Still reports some SOB. Had lunch yesterday. Upset about how many times he has been bothered this morning. No subjective F/C Family History: Unchanged from Admission Social History: Unchanged from Admission Past Medical History: Unchanged from Admission Objective Active Medications: Acetaminophen (Tylenol Tab*) 650 mg PO Q6H PRN Albuterol (Ventolin 2.5 Mg/3 Ml Neb.Angella*) 2.5 mg INH Q2H PRN Aspirin (Aspirin Ec Low Dose*) 81 mg PO DAILY PEPE Calcium Carbonate (Tums*) 500 mg PO Q4H PRN Device (Tiotropium Inhaler Device*) 1 each INH 0900 PEPE Diltiazem HCl (Cardizem Tab*) 30 mg PO Q6HR PEPE Docusate Sodium (Colace Cap*) 200 mg PO BID PEPE Heparin Sodium (Porcine) (Heparin Vial(*)) 5,000 units SUBCUT Q8HR PEPE Heparin Sodium (Porcine) (Heparin Flush Picc/Ml/Cvc(*)) 1 - 3 ml FLUSH 0600, 1800 [facility] Melatonin (Melatonin (Nf)) 3 mg PO BEDTIME PRN; Protocol Mometasone Furoate/Formoterol Fumar (Dulera 200/5 Mdi*) 2 puff INH BID PEPE Multivitamins (Theragran Tab*) 1 tab PO DAILY PEPE Nicotine (Nicotine Inhaler*) 10 mg INH Q2H PRN Omeprazole (Prilosec Cap*) 20 mg PO DAILY@0600 PEPE Polyethylene Glycol/Electrolytes (Miralax*) 17 gm PO 0800,2100 PEPE Potassium Phos/Sodium Phos (Neutra Phos 250 Mg Clarence*) 250 mg PO TID PEPE Sodium Biphosphate/Sodium Phosphate (Fleet Enema*) 1 bottle MI DAILY PRN Tiotropium Seco (Spiriva Cap.Inh*) 1 cap INH DAILY PEPE Vital Signs 12/15/16 12/15/16 12/15/16 08:28 10:13 10:24 Temperature 97.8 F Pulse Rate 84 95 104 Respiratory 16 32 23 Rate Blood Pressure 137/70 (mmHg) O2 Sat by Pulse 92 91 96 Oximetry 12/15/16 12/15/16 12/15/16 11:01 11:15 11:16 Temperature Pulse Rate 92 88 109 Respiratory 34 30 24 Rate Blood Pressure 115/74 120/68 (mmHg) O2 Sat by Pulse 96 97 95 Oximetry 12/16/16 12/16/16 12/16/16 01:03 01:15 01:30 Temperature Pulse Rate 86 95 Respiratory 29 22 Rate Blood Pressure 113/62 (mmHg) O2 Sat by Pulse 98 100 100 Oximetry 12/16/16 12/16/16 12/16/16 06:45 07:00 08:00 Temperature 99.0 F Pulse Rate 81 82 Respiratory 21 24 Rate Blood Pressure 104/57 (mmHg) O2 Sat by Pulse 100 100 Oximetry Oxygen Devices in Use Now: High Flow Nasal Cannula - 20L Appearance: Middle-aged, M, laying in bed in NAD Eyes: No Scleral Icterus Ears/Nose/Mouth/Throat: - - Dry MM Neck: NL Appearance and Movements; NL JVP Respiratory: Symmetrical Chest Expansion and Respiratory Effort, - - Diminished in B/L bases Cardiovascular: NL Sounds; No Murmurs; No JVD, RRR Abdominal: NL Sounds; No Tenderness; No Distention Lymphatic: No Cervical Adenopathy Extremities: - - Mild LE ankle edema Skin: No Rash or Ulcers Neurological: Alert and Oriented x 3 Lines/Tubes/Other Access: Clean, Dry and Intact Chest Tube - ~640 cc straw colored fluid Result Diagrams: 12/14/16 05:30 12/16/16 05:25 Microbiology and Other Data: Microbiology 12/07/16 23:11 Aerobic Blood Culture - Final Blood Venous No Growth Day 5 Anaerobic Blood Culture - Final No Growth Day 5 Blood Culture - Final 12/07/16 22:10 Aerobic Blood Culture - Final Blood Venous No Growth Day 5 Anaerobic Blood Culture - Final No Growth Day 5 Blood Culture - Final 12/08/16 03:39 Urine Culture - Final Urine 12/08/16 03:39 Legionella Urinary Antigen - Final Urine Negative Legionella Streptococcus pneumoniae Ag Screen - Final Positive S. Pneumo Antigen 12/07/16 23:42 Nasal Screen MRSA (PCR)(GERARDO) - Final Nasal Mrsa Negative Assess/Plan/Problems-Billing Assessment: Mr. Doan is a 66yo M with limited contact with the medical system, who presented to ED with dyspnea, found to have left pneumothorax and sepsis secondary to pneumonia, required ICU stay for hypotension requiring pressor therapy - Patient Problems (1) Pneumothorax Current Visit: Yes Comment: Recurrence on 12/15. S/P chest tube by Dr. Quiñones. Some fluid draining, repeat CXR this AM. Low grade fever yesterday, continue to monitor. Hold on additonal ABx for now. (2) Acute respiratory failure with hypoxia Current Visit: Yes Comment: Acute worsening on 12/15 2/2 recurrent PTX, currently on Vapotherm, weaned to 20L this AM. (3) Severe sepsis Current Visit: Yes Comment: Patient met sepsis criteria on admission with leukocytosis and tachycardia, also found to have CLARA. Source is pneumonia. Developed septic shock with need for vasopressor therapy. ABx completed (4) Pneumonia Current Visit: Yes Comment: S. pneumo urine antigen positive. Completed 7 days of ABx. (5) Diffuse esophageal spasm Current Visit: Yes Comment: May be contributing to weight loss, patient does report some throat pain with swallowing. Continue low dose Diltiazem. (6) Anemia Current Visit: Yes Comment: Ferritin elevated, likely ACD as well as increase as acute phase reactant (7) CLARA (acute kidney injury) Current Visit: Yes Comment: Resolved (8) Severe protein-calorie malnutrition Current Visit: Yes Comment: BMI 20 (?error in previous weight), prealbumin < 3. Appreciate nutrition consult. (9) COPD (chronic obstructive pulmonary disease) Current Visit: Yes Comment: Continue Spiriva, Dulera, prn albuterol (10) DVT prophylaxis Current Visit: Yes Comment: - SQ heparin. (11) Full code status Current Visit: Yes Status and Disposition: Will ask for palliative care consult
[2016-12-16] MEDS: Acetaminophen TAB* 325 MG PO PRN (09:08)
[2016-12-16] MEDS: Docusate CAP* 100 MG PO SCH ×2 (09:08→21:39)
[2016-12-16] MEDS: Vitamin THERAPEUTIC TAB PO SCH (09:09)
[2016-12-16] MEDS: Potassium & Sodium Phos 250MG* = 1 PACKET PO SCH (09:09)
[2016-12-16] MEDS: Aspirin EC Low Dose* 81 MG TAB.EC PO SCH (09:09)
[2016-12-16] MEDS: Polyethylene Glycol 3350* 17 GM PACKET PO SCH ×2 (09:09→21:39)
--- NOTE | 2016-12-16 09:15 | RAD ---
Indication: Left chest tube placement, left pneumothorax. Single frontal view of the chest performed at 0817 hours was reviewed. Comparison is made with previous exam dated December 15, 2016. Left chest tube remains in place. No significant pneumothorax is noted. Bilateral effusions are noted. Overall no changes noted since December 15, 2016. IMPRESSION: LEFT CHEST TUBE IN PLACE. BILATERAL PLEURAL EFFUSION WITH INTERSTITIAL EDEMA.
[2016-12-16] MEDS: Morphine INJ* 4 MG/ML 1 ML SYRINGE IV PRN ×2 (09:33→09:45)
[2016-12-16] MEDS ORDERED: Morphine ORAL CONCENTRATE* 5 MG/0.25 ML ORAL.SYRIN PO PRN (13:29)
[2016-12-16] MEDS: Mometasone/Formoter 200/5 MDI INH SCH ×2 (13:55→20:21)
[2016-12-16] MEDS: Tiotropium CAP.INH* CAP.INH/18 MCG INH SCH (13:55)
--- NOTE | 2016-12-16 20:06 | CONS ---
PALLIATIVE CARE CONSULTATION: DATE OF CONSULT: 12/16/16 PRIMARY CARE PHYSICIAN: The patient does not have a primary care physician. REFERRING PHYSICIAN FOR CONSULTATION: Demetrio Clifford MD HOSPITAL COURSE: This is a 66-year-old male with a past medical history of COPD , tobacco use who has not followed a primary care physician in nearly 30 years, who presented to the emergency room on 12/07/16 with shortness of breath. On arrival to the emergency room, he had a workup that showed that he was septic secondary to pneumonia with a large pneumothorax. On admission, the patient had a chest tube placed and placed on broad-spectrum antibiotics and IV fluids. He was also noted to be extremely cachectic. He stated he had lost about 100 pounds in the past 6 months and has had a significant decrease in appetite and anorexia. He was admitted in the ICU for critical care and close monitoring. The patient decompensated on the evening of 12/09/16 requiring vasopressor support and was taken over by the integrated pest management technician service. The patient did clinically improve and was transferred out to the floor on 12/13/16. Also on admission, he was noted to be in in acute kidney injury, which resolved with IV fluids. He had nutrition evaluation for his malnourished state. He also had an esophageal x-ray for concern of swallowing dysfunction, which showed a discoordinated swallowing with diffuse intermittent esophageal spasm. The patient was clinically improving on the floor when he acutely decompensated on 12/15/16 with more acute respiratory failure. Chest x-ray showed again a large left pneumothorax. Another chest tube was then placed by Dr. Quiñones and the patient was transferred back to the ICU. Due to the patient's prolonged hospital course and second ICU admission with poor prognosis, Palliative Care was involved. The patient states he has smoked more than a pack a day for the past 50 years. He lives in an apartment next to his daughter. His daughter brings him food, otherwise he does not leave the house. He enjoys watching TV all day. He tells me that he no longer wants invasive treatment or aggressive measures that he states that he lived a good life and he is ready to . He understands that he has significant lung disease and that presumably based on his CAT scan findings and his severe protein malnourished state that he is eligible for hospice which he is agreeable to. His daughter, Kimmie and his [id number], Arianne were at the bedside and when we talked about end of the life care decisions, the patient states that he lived a a good life and he is willing to go to the hospice residence if there is an opening. He understands that he cannot manage at home and does not have the finances to provide for 24- hour care. We did review the MOLST form more at length as it was just a DNR/ DNI and went more for comfort measures, no rehospitalization, no IV fluids, no feeding tube. The patient states that the chest tube is very uncomfortable. He does not feel that it improved his breathing and was interested in having that removed. We also talked about switching over to the nasal cannula, off the Vapotherm, more focusing on comfort. He is in agreement to all of this. He does not want to continue living this way. He is very realistic in his expectations. His daughter is very tearful at the bedside, but understands his wishes clearly. Otherwise, remaining review of systems is negative. PAST MEDICAL HISTORY: 1. The patient had not seen a provider in about 30 years. Hospital course noted new diagnosis of presumably end-stage COPD. Tobacco use. Severe protein-calorie malnutrition. INPATIENT MEDICATIONS: 1. Tylenol 650 mg every 6 hours as needed. 2. Albuterol neb q.2 hours as needed. 3. Aspirin 81 mg daily. 4. Calcium carbonate 500 mg q.4 hours as needed for dyspepsia. 5. Diltiazem 30 mg p.o. q.6 hours. 6. Colace 200 mg p.o. b.i.d. 7. Heparin 5000 units subcu t.i.d. 8. Melatonin 3 mg at bedtime for sleep. 9. Mometasone/formoterol 2 puffs inhaled b.i.d. 10. Morphine 30 mg IV q.4 hours as needed. 11. Nicotine inhaler q.2 hours as needed. 12. Omeprazole 20 mg p.o. daily. 13. MiraLAX twice a day scheduled. 14. Spiriva inhaler. 15. Tiotropium daily. 16. Multivitamin. ALLERGIES: No known drug allergies. FAMILY HISTORY: Mother in her 80s from an infection. Father is estranged. SOCIAL HISTORY: As mentioned, the patient was living at home, never leaving his house with his daughterKimmie living in an attached apartment next to him. Smoking a pack per day for more than 50 years. He is . He has a son and daughter. His primary healthcare proxy is daughter, Kimmie and secondary is [id number], Arianne. MOLST form modified as DNR/DNI comfort measures. No further rehospitalization. No IV fluids. No feeding tube. REVIEW OF SYSTEMS: A 14-point review of systems reviewed. Pertinent positive and negative as mentioned in the HPI, otherwise negative. PHYSICAL EXAM: Vital Signs: Temp 99.2, pulse rate 84, oxygen saturation 99% on 10 L Vapotherm, respiratory rate 25, blood pressure 104/54. General: Cachectic male in no acute distress with family members at the bedside. Remaining exam deferred. PERTINENT LABORATORY INFORMATION: Prealbumin less than 3, albumin is 2. RADIOGRAPHIC DATA: Chest, abdomen, and pelvis CT; persistent approximate 30% left pneumothorax, Heimlich valve type left apical chest tube in place. Small dependent left pleural effusion, severe emphysema, and moderate interstitial fibrosis. Alveolar consolidation at the bilateral lower lobes. On the left, this may represent atelectasis given volume loss in the pneumothorax 0.7 cm smooth margin. He had subpleural pulmonary nodule in anterior segment right upper lobe. ASSESSMENT/PLAN: This is a 66-year-old male who has not been seen by a medical professional in 30 years who presented to the emergency room with shortness of breath, found to have severe end-stage chronic obstructive pulmonary disease with recurrent pneumothorax in the setting of pneumonia with no significant clinical improvement despite 2 weeks of being hospitalized. He is eligible for hospice with a terminal diagnosis of end-stage chronic obstructive pulmonary disease and a secondary diagnosis of severe protein-calorie malnutrition. The patient is interested in the hospice residence and we will refer our information over to him to see if he is eligible for a bed placement there. He did talk about getting the chest tube removed and placing on a nasal cannula for comfort only. I am going to discontinue several of his medications including his aspirin, heparin subcu and supplements. Follow up with Dr. Clifford regarding discontinuing his medications. The patient is anxious to get to the residence and out of the hospital. We will try to expedite that as quickly as possible. Thank your for this consultation. I will follow along with you. TIME SPENT: Greater than 90 minutes spent doing the consultation, more than half the time spent in direct patient contact. [id number]/[facility] #: [id number] SCAR
[2016-12-17] MEDS: Diltiazem TAB* 30 MG PO SCH ×4 (05:40→23:58)
[2016-12-17] MEDS: Omeprazole CAP* 20 MG PO SCH (05:40)
[2016-12-17] MEDS: Tiotropium CAP.INH* CAP.INH/18 MCG INH SCH (08:03)
[2016-12-17] MEDS: Mometasone/Formoter 200/5 MDI INH SCH ×2 (08:03→19:48)
[2016-12-17] MEDS ORDERED: Spiriva Inhaler DEVICE* 1 EACH DEVICE INH ONE (09:00)
[2016-12-17] MEDS: Spiriva Inhaler DEVICE* 1 EACH DEVICE INH SCH (09:51)
[2016-12-17] MEDS: Polyethylene Glycol 3350* 17 GM PACKET PO SCH ×2 (09:53→20:53)
[2016-12-17] MEDS: Docusate CAP* 100 MG PO SCH ×2 (09:53→20:53)
[2016-12-17 11:33] VITALS: BP 115/60
--- NOTE | 2016-12-17 11:45 | PN ---
Progress Note - Progress Note Date of Service: 12/17/16 Note: Surgery Progress: S: asked by Hospice service to remove chest tube 2/2 pain. Patient denies SOB. He has in fact required very little pain meds over the past 24 hrs. O: Vital Signs - 8 hr 12/17/16 12/17/16 08:00 08:05 Temperature 97.4 F Pulse Rate 76 91 Respiratory 28 Rate Blood Pressure 115/60 (mmHg) O2 Sat by Pulse 91 96 Oximetry Heart: irreg (bigeminy?) Lungs: clear bilat chest tube: clear serous drainage; no air leak yesterday's chest xray showed no ptx A/P: chest tube for recurrent Left ptx; per pt request chest tube was removed w/ o incident. He understands that there is a high likelihood that the ptx could recur. Replacement w/ a Heimlich type catheter could be again considered as this was better tolerated; otherwise, comfort measures only. There are still some sutures at the chest tube site which can be removed 12/20 or later.
--- NOTE | 2016-12-17 13:33 | PN ---
Subjective Date of Service: 12/17/16 Interval History: HOSPITALIST PROGRESS NOTE Patient seen and examined at bedside. He offers no complaints at this time. States his breathing is "okay", denies pain, has more appetite today. Family History: Unchanged from Admission Social History: Unchanged from Admission Past Medical History: Unchanged from Admission Objective Active Medications: Acetaminophen (Tylenol Tab*) 650 mg PO Q6H PRN PRN Reason: FEVER/PAIN Last Admin: 12/16/16 09:08 Dose: 650 mg Albuterol (Ventolin 2.5 Mg/3 Ml Neb.Angella*) 2.5 mg INH Q2H PRN PRN Reason: SOB/WHEEZING Calcium Carbonate (Tums*) 500 mg PO Q4H PRN PRN Reason: DYSPEPSIA Diltiazem HCl (Cardizem Tab*) 30 mg PO Q6HR [facility] Last Admin: 12/17/16 12:47 Dose: Not Given Docusate Sodium (Colace Cap*) 200 mg PO BID [facility] Last Admin: 12/17/16 09:53 Dose: Not Given Heparin Sodium (Porcine) (Heparin Flush Picc/Ml/Cvc(*)) 1 - 3 ml FLUSH 0600, 1800 [facility] PRN Reason: Protocol Last Admin: 12/17/16 05:40 Dose: Not Given Melatonin (Melatonin (Nf)) 3 mg PO BEDTIME PRN; Protocol PRN Reason: Sleep Mometasone Furoate/Formoterol Fumar (Dulera 200/5 Mdi*) 2 puff INH BID [facility] Last Admin: 12/17/16 08:03 Dose: 2 puff Morphine Sulfate (Morphine Inj (Syringe)*) 3 mg IV Q4H PRN PRN Reason: PAIN Last Admin: 12/16/16 09:45 Dose: 3 mg Morphine Sulfate (Morphine Oral Concentrate*) 5 mg PO Q2H PRN PRN Reason: PAIN Nicotine (Nicotine Inhaler*) 10 mg INH Q2H PRN PRN Reason: CRAVING Omeprazole (Prilosec Cap*) 20 mg PO DAILY@0600 [facility] Last Admin: 12/17/16 05:40 Dose: Not Given Polyethylene Glycol/Electrolytes (Miralax*) 17 gm PO 0800,2100 [facility] Last Admin: 12/17/16 09:53 Dose: Not Given Sodium Biphosphate/Sodium Phosphate (Fleet Enema*) 1 bottle [place] DAILY PRN PRN Reason: CONSTIPATION Tiotropium [place] (Spiriva Cap.Inh*) 1 cap INH DAILY [facility] Last Admin: 12/17/16 08:03 Dose: 1 cap Vital Signs 12/17/16 12/17/16 12/17/16 02:10 08:00 08:05 Temperature 97.4 F Pulse Rate 72 76 91 Respiratory 20 28 Rate Blood Pressure 115/60 (mmHg) O2 Sat by Pulse 97 91 96 Oximetry Oxygen Devices in Use Now: Nasal Cannula - 4 liters Appearance: Elderly cachectic male lying in bed in NAD. Eyes: No Scleral Icterus Ears/Nose/Mouth/Throat: Mucous Membranes Moist Neck: Trachea Midline Respiratory: Symmetrical Chest Expansion and Respiratory Effort, - - BS+ bilaterally, decreased in left base. Cardiovascular: RRR - Normal S1 and S2 Abdominal: NL Sounds; No Tenderness; No Distention - excavated Neurological: Alert and Oriented x 3, NL Muscle Strength and Tone Lines/Tubes/Other Access: Clean, Dry and Intact Peripheral IV Nutrition: Taking PO's Result Diagrams: 12/14/16 05:30 12/16/16 05:25 Assess/Plan/Problems-Billing Assessment: Mr. Doan is a 66yo M with limited contact with the medical system, who presented to ED with dyspnea, found to have left pneumothorax and sepsis secondary to pneumonia, required ICU stay for hypotension requiring pressor therapy - Patient Problems (1) Severe sepsis Comment: - Patient met sepsis criteria on admission with leukocytosis and tachycardia, also found to have CLARA. - Source was pneumococcal pneumonia. - Developed septic shock with need for vasopressor therapy. - Completed antibiotic course. (2) Acute respiratory failure with hypoxia Comment: - Acute worsening on 12/15 secondary to recurrent PTX, now down to 4 liters. (3) Pneumonia Comment: - S. pneumo urine antigen positive. Completed 7 days of ABx. (4) Pneumothorax Comment: - Recurrence on 12/15. S/P chest tube by Dr. Quiñones. As plan now is for hospice, CT was removed today. (5) Diffuse esophageal spasm Comment: - May be contributing to weight loss, patient does report some throat pain with swallowing. - Continue low dose Diltiazem. (6) Severe protein-calorie malnutrition Comment: - BMI 16, prealbumin < 3. - Appreciate nutrition input. (7) Anemia Comment: - Ferritin elevated, likely ACD as well as increase as acute phase reactant. (8) CLARA (acute kidney injury) Comment: - Resolved. (9) COPD (chronic obstructive pulmonary disease) Comment: - Continue Spiriva, Dulera, prn albuterol (10) Depression Comment: - Suspect depression playing a role on his clinical condition, but he' s not suicidal. (11) DVT prophylaxis Comment: - SQ heparin. (12) DNR (do not resuscitate) (13) End of life care Comment: - Palliative care input appreciated. - Anticipate d/c in AM to [facility], with PICC line, without chest tube. Status and Disposition: Inpatient. Anticipate d/c in AM.
[2016-12-17] MEDS ORDERED: Morphine INJ* 4 MG/ML 1 ML SYRINGE IV PRN (17:42)
[2016-12-18] MEDS: Omeprazole CAP* 20 MG PO SCH (05:43)
[2016-12-18] MEDS: Diltiazem TAB* 30 MG PO SCH (05:43)
[2016-12-18] MEDS: Polyethylene Glycol 3350* 17 GM PACKET PO SCH (09:16)
[2016-12-18] MEDS: Docusate CAP* 100 MG PO SCH (09:16)
[2016-12-18] MEDS: Mometasone/Formoter 200/5 MDI INH SCH (10:20)
[2016-12-18] MEDS: Tiotropium CAP.INH* CAP.INH/18 MCG INH SCH (10:20)
--- NOTE | 2016-12-18 13:50 | DS ---
CC: Dr. Yue Steele, [facility] * DISCHARGE SUMMARY: DATE OF ADMISSION: 12/07/16 DATE OF DISCHARGE: 12/18/16 PRIMARY CARE PROVIDER: Dr. Yue Steele. DISCHARGE DIAGNOSES: 1. Severe sepsis present on admission. 2. Pneumococcal pneumonia. 3. Recurrent pneumothorax. 4. Acute respiratory failure with hypoxia. 5. Diffuse esophageal spasm. 6. Severe protein calorie malnutrition. 7. Anemia of chronic disease. 8. Acute kidney injury. 9. Chronic obstructive pulmonary disease. 10. Depression. MEDICATION LIST: 1. Acetaminophen 650 mg p.o. q.6 hours p.r.n. pain or fever. 2. Albuterol 2.5 inhaled q.2 hours p.r.n. shortness of breath. 3. Atropine 1% 2 drops sublingual q.2 hours as needed for terminal secretions. 4. Diltiazem 30 mg p.o. q.6 hours. 5. Colace 100 mg p.o. b.i.d. 6. Heparin flush PICC line b.i.d. 7. Lorazepam 0.5 mg p.o. q.4 hours as needed for anxiety, MDD 6 tablets. 8. Dulera 200/5 two puffs inhaled b.i.d. 9. Morphine concentrate 5 mg p.o. q.2 hours as needed for pain or tachypnea with respiratory rate greater than 24, MDD 60 mg. 10. Nicotine inhaler 10 mg inhaled q.2 hours p.r.n. cravings. 11. Omeprazole 20 mg p.o. daily. 12. MiraLAX 17 g p.o. daily. 13. Spiriva one capsule inhaled daily. HOSPITAL COURSE: Mr. Doan is a 66-year-old male with limited contact with the healthcare system, who presented to the emergency room on 12/07/16 with complaints of severe respiratory distress. For more details about his presentation, I refer you to his history and physical. The patient was found to have a left pneumothorax and catheter was placed by General Surgery (Dr. Rodrigues). The patient was also found to be septic with leukocytosis, tachycardia, and he also had acute kidney injury. He was admitted to the intensive care unit and he then required pressors to maintain his blood pressure. A CT of the brain without contrast showed involutional change and stigmata of chronic small vessel ischemic disease, no acute intracranial process. Cervical spine CT was negative for traumatic injury of the cervical spine. CTA of the chest, abdomen, and pelvis without contrast showed a 30% persistent left pneumothorax, small dependent left pleural effusion, severe emphysema, and moderate interstitial fibrosis. A 0.7 cm smooth, marginated, subpleural pulmonary nodule in the anterior segment of the right upper lobe. Absence of IV and oral contrast in cachectic state limits assessment of the abdomen by malignancy or acute abdominopelvic pathologic process was not evident. On further review, there was also note of significant mucous plugging at the bilateral lower lobe areas. The patient was cared forward in intensive care unit by Dr. Wren. He felt that a large-bore chest tube would be difficult since the patient's healing potential was poor. Blood cultures were negative, but pneumococcal urine antigen was positive, and the patient completed antibiotic treatment with improvement of his vital signs. On 12/11/16, the patient had shown resolution of his pneumothorax and the tube was removed. On 12/13/16, the patient was transferred to the medical floor and his workup continued, especially for his severe protein calorie malnutrition, as the patient has a BMI of 16 with a prealbumin of less than 3. An esophagus x -ray was performed and it showed discoordinated swallowing with diffuse intermittent esophageal spasm. The patient was started on Cardizem to help with this problem, but the patient describes poor oral intake for many years and states that he was always thin and never weighed more than 135 pounds. On 12/15/16, the patient complained of chest pain and shortness of breath and he was found to have a recurrent left pneumothorax. A chest tube was then placed by Dr. Quiñones. At that point, the patient stated that he did not want aggressive measures anymore and at that point, a palliative care consultation was requested. The patient was seen on 12/16/[address] Garcia and her impression was the patient is a 66-year-old male who has not been seen by a medical professional in 30 years, who presented to the emergency department with shortness of breath , found to have severe endstage COPD with recurrent pneumothorax in the setting of pneumonia, with no significant clinical improvement despite 2 weeks of being hospitalized. He is eligible for hospice with a terminal diagnosis of endstage COPD and a secondary diagnosis of severe protein calorie malnutrition. The patient and his family were interested in the [facility] residence and his medications were adjusted to reflect the goal for comfort at this time. The patient does appear to be depressed and this appeared to be a chronic issue, but he has no suicidal ideation. His request for hospice at this point has to do with quality of life and I believe he has the capacity to make this decision. The patient had his chest tube removed on 12/17/16 and he will be discharged to [facility] today with his PICC line. PHYSICAL EXAMINATION: Vital Signs: Temperature 97.4, heart rate 82, respiratory rate is 18, oxygen saturation 96% on 4 L nasal cannula, blood pressure is 115/60. General: The patient is a cachectic male that appears older than stated age, lying in bed in no acute distress. CVS: Normal S1, S2. Regular rate and rhythm. Chest: Breath sounds bilaterally decreased on the left. Abdomen is excavated, nontender. Neuro: He is alert, awake, oriented x3. Able to move all 4 extremities. DIET: Regular diet for comfort. ACTIVITIES: As tolerated. DISPOSITION: To the [facility]. STATUS WHILE IN THE HOSPITAL: Inpatient. Please keep in mind, this is a summarized version of this patient's prolonged and complex hospital stay. If you need more information, please feel free to call me at [phone] or please refer to the full medical records. TIME SPENT: Approximately 45 minutes was spent to complete this discharge. [id number]/CPS #: [id number] SCAR
== END 2016-12-18 10:30 | disposition hospice, inpatient (51) | DRG 199 ==
LOC: ED 20:10 → ICU 20:33 → MED 12-12 13:55 → ICU 12-15 09:57 → MED 12-16 15:51
PROVIDERS: ADMIT Hospitalist; ATTEND Internal Medicine
PROC: 0WHB33Z Insertion of Infusion Device into Left Pleural Cavity, Percutaneous Approach (ICD-10-PCS; 2016-12-07)
PROC: 0W9B30Z Drainage of Left Pleural Cavity with Drainage Device, Percutaneous Approach (ICD-10-PCS; principal; 2016-12-09)
PROC: 3E033XZ Introduction of Vasopressor into Peripheral Vein, Percutaneous Approach (ICD-10-PCS; 2016-12-09)
PROC: 02HV33Z Insertion of Infusion Device into Superior Vena Cava, Percutaneous Approach (ICD-10-PCS; 2016-12-11)
PROC: 0WPBX0Z Removal of Drainage Device from Left Pleural Cavity, External Approach (ICD-10-PCS; 2016-12-13)
PROC: 0W9B30Z Drainage of Left Pleural Cavity with Drainage Device, Percutaneous Approach (ICD-10-PCS; 2016-12-15)
PROC: 0WPBX0Z Removal of Drainage Device from Left Pleural Cavity, External Approach (ICD-10-PCS; 2016-12-17)
DX: J93.83 Other pneumothorax (principal); A41.9 Sepsis, unspecified organism; J96.01 Acute respiratory failure with hypoxia; R65.21 Severe sepsis with septic shock; E43 Unspecified severe protein-calorie malnutrition; N17.9 Acute kidney failure, unspecified; J13 Pneumonia due to Streptococcus pneumoniae; J44.0 Chronic obstructive pulmonary disease with (acute) lower respiratory infection; I24.8 Other forms of acute ischemic heart disease; Z68.1 Body mass index [BMI] 19.9 or less, adult; D63.8 Anemia in other chronic diseases classified elsewhere; F32.9 Major depressive disorder, single episode, unspecified; K22.4 Dyskinesia of esophagus; F17.210 Nicotine dependence, cigarettes, uncomplicated; Z66 Do not resuscitate; J84.10 Pulmonary fibrosis, unspecified; R91.1 Solitary pulmonary nodule; Z51.5 Encounter for palliative care; J95.812 Postprocedural air leak; Y83.8 Other surgical procedures as the cause of abnormal reaction of the patient, or of later complication, without mention of misadventure at the time of the procedure; Y82.8 Other medical devices associated with adverse incidents; Y92.239 Unspecified place in hospital as the place of occurrence of the external cause; Z79.01 Long term (current) use of anticoagulants
CPT/HCPCS: 36415; 70450; 71010; 71020; 71250; 72125; 74176; 74220; 80048; 80053; 81003; 81015; 82533; 82550; 82553; 82607; 82728; 82746; 83540; 83550; 83605; 83735; 84100; 84134; 84145; 84443; 84484; 85025; 85027; 85610; 85730; 86140; 86480; 86703; 87040; 87086; 87641; 87899; 93005; 93306; 94640; 94760; 99406; A9270-GY; C1751; G8996-GN-CK; G8997-GN-CK; G8998-GN-CK; J0456; J0696; J1644; J1940; J2270; J2543; J3010; J3475; J3480